=== PATIENT | female | born 2005 | race Caucasian/White ===

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

== ENCOUNTER 2024-08-26 15:26 | Observation (INO) | payer SELFPAY ==
[2024-08-26 15:15] VITALS: BP 125/67; PULSE 93
[2024-08-26 15:30] VITALS: BP 122/69; PULSE 95; TEMP 36.2; BMI 33.7
[2024-08-26 15:45] VITALS: BP 116/67; PULSE 89
--- NOTE | 2024-08-28 17:38 | PM.OBTRLD ---
OB - Triage/Final Diagnosis Visit Information Date of evaluation: 08/26/24 Reason for evaluation: other (abd pain) Comments/Additional reasons for admission: I have assessed the risk for this patient, Lianne Valenzuela, and determined that she would benefit from observation care.
== END 2024-08-26 16:12 | disposition home or self-care (01) ==
PROVIDERS: Admitting Provider Obstetrics & Gynecology; PCP Family Medicine Adolescent Medicine; Visit Provider Obstetrics & Gynecology
DX: O26.893 Other specified pregnancy related conditions, third trimester (principal); R10.9 Unspecified abdominal pain; Z3A.30 30 weeks gestation of pregnancy
CPT/HCPCS: G0378; G0379

== ENCOUNTER 2024-10-27 04:45 | Inpatient (IN) | payer OTHER, SELFPAY ==
[2024-10-27] VITALS (188 sets, daily range): BP systolic 63–147; BP diastolic 51–105; PULSE 32–136; RESP 16; TEMP 36–37.1; O2SAT 74–100; BMI 33.3
--- NOTE | 2024-10-27 05:13 | LDADM ---
This patient, Lianne Valenzuela, was admitted to Labor/Delivery/Recovery 104 on 10/27/24 at 04:45. Plans for labor, pain management and were discussed with patient. Patient/family oriented to hospital policies and general routines including ID bracelet, bed and alarms, visiting hours, pain management, procedures, bathroom and other care routines, personal items, smoking policy, room service/diet and guest tray routines, security routines, and visiting hours. Patient/Family are encouraged to report perceived risks to care and to ask questions if they do not understand what they are told or what they should do. See [facility]BI[facility] for further documentation.
[2024-10-27 05:38] LABS: Basophils Absolute Auto 0.1 K/mm3 (0.0-0.1); Basophils Percent Auto 0.5 % (0.2-1.2); Eosinophils Absolute Auto 0.2 K/mm3 (0-0.3); Eosinophils Percent Auto 1.7 % (0-4.4); Hematocrit 34.1 % (37.0-47.0); Hemoglobin 11.2 g/dL (12.0-15.0); Immature Granulocyte Absolute 0.14 K/mm3 (0.00-0.031); Immature Granulocyte Percent A 1.1 % (0-0.5); Lymphocytes Percent Auto 20.4 % (18.3-44.2); Mean Corpuscular HGB Conc 32.8 g/dl (32-36); Mean Corpuscular Hemoglobin 28.5 pg (26-34); Mean Corpuscular Volume 86.8 fl (80-100); Mean Platelet Volume 11.1 fl (7.4-10.4); Monocytes Absolute Auto 0.9 K/mm3 (0.1-0.6); Monocytes Percent Auto 7.2 % (2.6-8.5); Neutrophils Absolute Auto 8.8 K/mm3 (1.3-6.7); Neutrophils Percent Auto 69.1 % (45.5-73.1); Platelet Count Result 287 k/mm3 (150-375); Red Blood Count 3.93 M/mm3 (4.2-5.4); Red Cell Distribution Width 12.9 % (11.5-14.5); White Blood Count 12.8 K/mm3 (4.5-10.0)
[2024-10-27] MEDS: LACTATED RINGERS 1,000 ML 125 ML IV CONT ×2 (05:53→09:27)
[2024-10-27] MEDS: OXYTOCIN 30 UNITS/NS 500 ML 30 UNITS/500 ML BAG IV CONT (06:00)
[2024-10-27] MEDS: AMPICILLIN 2 GM/NS 100 ML 2 GM/100 ML BAG IVPB (06:01)
[2024-10-27 06:28] LABS: Hepatitis B Surface Antigen Negative (Negative); Rubella IgG Antibody 15.6 IU/ML
[2024-10-27 06:29] LABS: HIV 1/2 Ab P24 Ag Result Negative (Negative)
[2024-10-27 06:39] LABS: Rapid Plasma Reagin Non-Reactive (NonReactive)
[2024-10-27] MEDS: CALCIUM CARBONATE (TUMS) 500 MG (200 MG ELEMENTAL) PO (07:40)
--- NOTE | 2024-10-27 09:35 | P.PNAN_ITS ---
Anes - Initial Pre Proc Eval Procedure: Labor Epidural Date/Time: 10/27/24 09:35 Surgeon: Jaycob Mcconnell MD Pre Op Diagnosis: Labor pain Pre Op Diagnosis: IOL Patient Data Age: 19 Gender: F Height: 1.83 m Weight: 111.4 kg Last Vital Signs Temp 36.3 C L 10/27/24 09:29 Pulse 73 10/27/24 09:30 BP 125/78 10/27/24 09:30 Pulse Ox 99 10/27/24 09:32 O2 Del Method Room Air 10/27/24 05:38 Allergies Allergy/AdvReac Type Severity Reaction Status Date / Time latex Allergy Unknown Rash Verified 10/27/24 07:19 banana Allergy Vomiting Verified 10/27/24 07:19 shrimp Allergy Unknown Verified 10/27/24 07:20 Home Medications ?Medication ?Instructions ?Recorded ?Confirmed ?Type vits no.130-ferrous fum 1 tablet PO DAILY 30 days #30 tabs 07/06/22 10/27/24 Rx 27 mg iron-folic acid 800 mcg tablet ( Vitamin) Laboratory Tests 10/27/24 05:15 WBC 12.8 H K/mm3 (4.5-10.0) RBC 3.93 L M/mm3 (4.2-5.4) Hgb 11.2 L g/dL (12.0-15.0) Hct 34.1 L % (37.0-47.0) MCV 86.8 fl (80-100) MCH 28.5 pg (26-34) MCHC 32.8 g/dl (32-36) RDW 12.9 % (11.5-14.5) Plt Count 287 k/mm3 (150-375) MPV 11.1 H fl (7.4-10.4) Immature Gran % (Auto) 1.1 H % (0-0.5) Neut % (Auto) 69.1 % (45.5-73.1) Lymph % (Auto) 20.4 % (18.3-44.2) [place] % (Auto) 7.2 % (2.6-8.5) Eos % (Auto) 1.7 % (0-4.4) Baso % (Auto) 0.5 % (0.2-1.2) Lymph # (Auto) 2.60 K/mm3 (0.9-3.2) [place] # (Auto) 0.9 H K/mm3 (0.1-0.6) Eos # (Auto) 0.2 K/mm3 (0-0.3) Baso # (Auto) 0.1 K/mm3 (0.0-0.1) Abs Immat Gran (auto) 0.14 H K/mm3 (0.00-0.031) Absolute Neuts (auto) 8.8 H K/mm3 (1.3-6.7) Absolute Nucleated RBC 0.000 K/mm3 (0.0-0.012) Nucleated RBC % 0.0 % (0.0-0.2) RPR Non-reactive (NonReactive) Hep Bs Antigen Negative (Negative) HIV 1&2 Ab/P24 Ag 4thGn Negative (Negative) Rubella IgG Antibody 15.6 IU/ML (10 - ) Blood Type A Positive Antibody Screen Negative : gestational age (ISABELA 11/02/24) Patient hx anesthesia problems: none Family hx anesthesia problems: none Results Review: All pre-operative results and documents have been reviewed as part of the pre- operative evaluation. [facility] Family History Family History Grandparent Hypertension Social History Social History Smoking status: Current every day smoker Tobacco type: cigarettes and e-cigarettes/vaping Second hand tobacco smoke exposure: No Substance use: current Last use: 10/20/2024 Do You Feel Safe in your Home?: Yes Lack of Transportation: No Lack of Food: Never True Current Housing: I Have Housing Concerned About Future Housing: No Difficulty Paying Gas/Electric Bills: No Difficulty Paying for Meds: No Currently Unemployed: No Education: Associate Degree Difficulty w/ Childcare or Family Care: No Spiritual care concerns: No Anes - Eval Final PreProcedure Day of Procedure 10/27/24 09:35 Patient weight: obese Lungs: normal air movement Airway: Mallampati scale class II Neurological: alert and oriented Last oral intake: >/= 8 hours ASA classification: II Emergent: no Anesthetic plan: proceed Anesthesia type and monitoring: regional epidural Results Review: All pre-operative results and documents have been reviewed as part of the pre- operative evaluation. Informed Consent: The patient's anesthetic plan and its attendant risks and benefits were discussed with the patient/family/POA. Questions were solicited and answers provided to the satisfaction of the patient/family/POA.
[2024-10-27] MEDS: AMPICILLIN 1 GM/NS 50 ML 1 GM/50 ML BAG IVPB (10:27)
--- NOTE | 2024-10-27 10:35 | PM.IMHP ---
H&P: HPI History of Present Illness Date/Time: 10/27/24 10:35 Chief Complaint: Elective induction Narrative: Patient is a 19 year old at 39 weeks who presents for elective induction of labor. Her has been overall uncomplicated. She denies strong contractions, leakage of fluid or vaginal bleeding. Good movement. Review of Systems Review of Systems: All systems reviewed & are unremarkable except as noted in HPI and below PMFSH Family History Family History Grandparent Hypertension Social History Social History Smoking status: Current every day smoker Tobacco type: cigarettes and e-cigarettes/vaping Second hand tobacco smoke exposure: No Substance use: current Last use: 10/20/2024 Do You Feel Safe in your Home?: Yes Lack of Transportation: No Lack of Food: Never True Current Housing: I Have Housing Concerned About Future Housing: No Difficulty Paying Gas/Electric Bills: No Difficulty Paying for Meds: No Currently Unemployed: No Education: Associate Degree Difficulty w/ Childcare or Family Care: No Spiritual care concerns: No Meds Home Medications and Allergies Home Medications ?Medication ?Instructions ?Recorded ?Confirmed ?Type vits no.130-ferrous fum 1 tablet PO DAILY 30 days #30 tabs 07/06/22 10/27/24 Rx 27 mg iron-folic acid 800 mcg tablet ( Vitamin) Allergies Allergy/AdvReac Type Severity Reaction Status Date / Time latex Allergy Unknown Rash Verified 10/27/24 07:19 banana Allergy Vomiting Verified 10/27/24 07:19 shrimp Allergy Unknown Verified 10/27/24 07:20 Vital Signs Vital Signs - 24 hr 10/27/24 05:12 10/27/24 05:17 10/27/24 05:18 Temperature Pulse Rate Blood Pressure Pulse Oximetry 99 99 97 Oxygen Delivery 10/27/24 05:23 10/27/24 05:28 10/27/24 05:32 Temperature Pulse Rate 92 Blood Pressure 121/76 Pulse Oximetry 98 98 98 Oxygen Delivery 10/27/24 05:37 10/27/24 05:38 10/27/24 05:42 Temperature Pulse Rate Blood Pressure Pulse Oximetry 98 99 Oxygen Delivery Room Air 10/27/24 05:47 10/27/24 05:48 10/27/24 05:48 Temperature Pulse Rate Blood Pressure Pulse Oximetry 98 94 85 L Oxygen Delivery 10/27/24 05:48 10/27/24 05:49 10/27/24 05:49 Temperature Pulse Rate Blood Pressure Pulse Oximetry 78 L 78 L 81 L Oxygen Delivery 10/27/24 05:50 10/27/24 05:51 10/27/24 05:56 Temperature Pulse Rate Blood Pressure Pulse Oximetry 74 L 98 98 Oxygen Delivery 10/27/24 06:00 10/27/24 06:01 10/27/24 06:06 Temperature Pulse Rate 93 Blood Pressure 114/75 Pulse Oximetry 97 98 Oxygen Delivery 10/27/24 06:11 10/27/24 06:16 10/27/24 06:21 Temperature Pulse Rate Blood Pressure Pulse Oximetry 98 99 99 Oxygen Delivery 10/27/24 06:33 10/27/24 06:38 10/27/24 06:42 Temperature Pulse Rate 75 Blood Pressure 126/69 Pulse Oximetry 99 98 Oxygen Delivery 10/27/24 06:43 10/27/24 06:48 10/27/24 06:49 Temperature 96.8 F L Pulse Rate Blood Pressure Pulse Oximetry 98 98 98 Oxygen Delivery 10/27/24 06:54 10/27/24 06:59 10/27/24 07:00 Temperature Pulse Rate 75 Blood Pressure 125/64 Pulse Oximetry 98 98 Oxygen Delivery 10/27/24 07:04 10/27/24 07:09 10/27/24 07:14 Temperature Pulse Rate Blood Pressure Pulse Oximetry 98 98 98 Oxygen Delivery 10/27/24 07:19 10/27/24 07:24 10/27/24 07:25 Temperature Pulse Rate Blood Pressure Pulse Oximetry 98 98 98 Oxygen Delivery 10/27/24 07:30 10/27/24 07:35 10/27/24 07:40 Temperature Pulse Rate 83 Blood Pressure 120/69 Pulse Oximetry 97 96 99 Oxygen Delivery 10/27/24 07:45 10/27/24 07:50 10/27/24 07:55 Temperature Pulse Rate Blood Pressure Pulse Oximetry 99 99 99 Oxygen Delivery 10/27/24 08:00 10/27/24 08:01 10/27/24 08:05 Temperature Pulse Rate 80 Blood Pressure 118/71 Pulse Oximetry 98 98 Oxygen Delivery 10/27/24 08:10 10/27/24 08:15 10/27/24 08:20 Temperature Pulse Rate Blood Pressure Pulse Oximetry 98 99 97 Oxygen Delivery 10/27/24 08:25 10/27/24 08:30 10/27/24 08:31 Temperature Pulse Rate 78 Blood Pressure 113/60 Pulse Oximetry 99 98 Oxygen Delivery 10/27/24 08:35 10/27/24 08:40 10/27/24 08:45 Temperature Pulse Rate Blood Pressure Pulse Oximetry 99 99 98 Oxygen Delivery 10/27/24 08:50 10/27/24 08:55 10/27/24 09:00 Temperature Pulse Rate Blood Pressure Pulse Oximetry 98 99 98 Oxygen Delivery 10/27/24 09:00 10/27/24 09:01 10/27/24 09:06 Temperature Pulse Rate 82 Blood Pressure 129/80 Pulse Oximetry 100 99 99 Oxygen Delivery 10/27/24 09:11 10/27/24 09:16 10/27/24 09:16 Temperature Pulse Rate Blood Pressure Pulse Oximetry 96 99 100 Oxygen Delivery 10/27/24 09:18 10/27/24 09:23 10/27/24 09:28 Temperature Pulse Rate Blood Pressure Pulse Oximetry 97 99 99 Oxygen Delivery 10/27/24 09:29 10/27/24 09:30 10/27/24 09:32 Temperature 97.3 F L Pulse Rate 73 Blood Pressure 125/78 Pulse Oximetry 99 Oxygen Delivery 10/27/24 09:37 10/27/24 09:41 10/27/24 09:42 Temperature Pulse Rate 66 Blood Pressure 131/85 Pulse Oximetry 100 99 Oxygen Delivery 10/27/24 09:44 10/27/24 09:46 10/27/24 09:47 Temperature Pulse Rate 74 72 Blood Pressure 124/72 134/95 H Pulse Oximetry 99 Oxygen Delivery 10/27/24 09:48 10/27/24 09:50 10/27/24 09:52 Temperature Pulse Rate 80 81 Blood Pressure 143/75 H 143/91 H Pulse Oximetry 100 Oxygen Delivery 10/27/24 09:53 10/27/24 09:56 10/27/24 09:57 Temperature Pulse Rate 93 85 Blood Pressure 147/105 H 143/81 H Pulse Oximetry 100 Oxygen Delivery 10/27/24 09:58 10/27/24 10:00 10/27/24 10:02 Temperature Pulse Rate 85 80 Blood Pressure 127/92 H 129/79 Pulse Oximetry 100 Oxygen Delivery 10/27/24 10:03 10/27/24 10:06 10/27/24 10:07 Temperature Pulse Rate 84 88 Blood Pressure 130/72 131/77 Pulse Oximetry 98 Oxygen Delivery 10/27/24 10:08 10/27/24 10:11 10/27/24 10:12 Temperature Pulse Rate 73 83 Blood Pressure 137/76 127/69 Pulse Oximetry 99 Oxygen Delivery 10/27/24 10:13 10/27/24 10:15 10/27/24 10:17 Temperature Pulse Rate 83 83 Blood Pressure 128/79 125/71 Pulse Oximetry 97 Oxygen Delivery 10/27/24 10:18 10/27/24 10:21 10/27/24 10:22 Temperature Pulse Rate 82 82 Blood Pressure 120/67 118/67 Pulse Oximetry 98 Oxygen Delivery 10/27/24 10:23 10/27/24 10:26 10/27/24 10:27 Temperature Pulse Rate 89 88 Blood Pressure 122/74 95/70 L Pulse Oximetry 97 Oxygen Delivery 10/27/24 10:28 10/27/24 10:31 10/27/24 10:32 Temperature Pulse Rate 80 78 Blood Pressure 117/72 124/74 Pulse Oximetry 98 Oxygen Delivery 10/27/24 10:33 Temperature Pulse Rate 75 Blood Pressure 123/60 Pulse Oximetry Oxygen Delivery Exam Const: General: comfortable and no acute distress HENMT: Mouth: Yes moist mucous membranes Resp: Effort & Inspection: normal respiratory effort Cardio: Rate: regular rate : Other: SVE 4/50/-2, AROM Of clear fluid, IUPC placed without issue Skin: General skin exam: normal color Extrem: General: normal to inspection Psych: Mental Status: mental status grossly normal H&P: Results Labs Labs: Short CBC 10/27/24 Range/Units 05:15 WBC 12.8 H (4.5-10.0) K/mm3 Hgb 11.2 L (12.0-15.0) g/dL Hct 34.1 L (37.0-47.0) % Plt Count 287 (150-375) k/mm3 Assessment and Plan Assessment and plan (1) Encounter for elective induction of labor: Code(s): Z34.90 - Encounter for supervision of normal , unspecified, unspecified trimester Status: Acute Assessment and Plan: - uncomplicated - SVE /-2 - pitocin per protocol; AROM of clear fluid - FHR category I
[2024-10-27] MEDS: FAMOTIDINE 20 MG/2 ML VIAL IV PUSH (12:17)
--- NOTE | 2024-10-27 16:48 | PM.OBPRVD ---
OB - Vaginal Delivery Note Procedure Delivery date: 10/27/24 Events: Elective Induction of Labor Induction method: Per Pitocin Protocol Delivery augmentation: Rupture of Membranes Delivery monitor: External FHT and Internal Uterine Route of delivery: Episiotomy description: None Laceration Description: Periurethral (hemostatic) Specimen: No Quantitative Blood Loss (ml): 50 Anesthesia type: Epidural Disposition: Floor Complications: No immediate complications Narrative: See H&P and notes for details on patient's admission and labor. She progressed to complete cervical dilation and at the appropriate time began pushing. With adequate expulsive efforts by the mother, the baby's head was delivered without difficulty. Nuchal cord was not present. The baby's right shoulder was anterior and delivered under the pubic symphysis without difficulty. The posterior shoulder and the rest of the baby delivered without difficulty. The umbilical cord was doubly clamped and cut after 60 seconds of delayed cord clamping. Care of the was then assumed by the nursing staff. [place] Baby Date of : 10/27/24 Gestational Age by Date: 39 gender: Male presentation: vertex position: Left Occiput Anterior Placenta delivery description: Expressed Cord Vessel Description: 3 Vessels and Delayed Cord Clamping
[2024-10-27] MEDS: IBUPROFEN 600 MG TABLET PO (18:30)
[2024-10-27] MEDS: BENZOCAINE 20% AER SPR (*SP) 56 GM CAN 1 SPRAY TOPICAL (18:30)
[2024-10-27] MEDS: WITCH HAZEL 40 PADS 1 PAD TOPICAL (18:30)
[2024-10-27] MEDS: ACETAMINOPHEN 325 MG TABLET 650 MG PO (18:31)
[2024-10-28 05:29] LABS: Hematocrit 32.8 % (37.0-47.0); Hemoglobin 10.5 g/dL (12.0-15.0)
[2024-10-28] MEDS: DOCUSATE SODIUM 100 MG CAPSULE PO (06:58)
[2024-10-28] MEDS: IBUPROFEN 600 MG TABLET PO (06:58)
[2024-10-28] MEDS: MULTIVIT/MIN/PREN/FOL AC/IRON TABLET 1 TAB PO (06:58)
[2024-10-28 07:00] VITALS: BP 106/50; PULSE 64; RESP 16; TEMP 36.9; O2SAT 97
--- NOTE | 2024-10-28 09:27 | P.PNOB_ITS ---
OB - PN: Subj Subjective Date/time seen: 10/28/24 09:27 Interval history: PPD#1 s/p Doing well, pain controlled Voiding without issue Passing flatus Tolerating general diet OB - PN: Obj Data Labs 10/28/24 04:06 Labs: Laboratory Results - last 24 hr 10/28/24 04:06 Hgb 10.5 L Hct 32.8 L OB - PN A/P Assessment and Plan (1) (spontaneous vaginal delivery): Code(s): O80 - Encounter for full-term uncomplicated delivery Status: Acute Plan day: 1 Plan: routine care, discharge home and follow up 6 weeks Time Spent With Patient Time: Total time spent is greater than 50% in coordination of care (as documented) at patient's floor/unit and/or counseling patient: Review of Systems 2 Review of Systems: All systems reviewed & are unremarkable except as noted in HPI and below Exam 2 Const: General: comfortable and no acute distress O rientation/consciousness: patient oriented x3 Resp: Effort & Inspection: normal respiratory effort
--- NOTE | 2024-10-28 09:29 | P.DS_ITS ---
DS: Admitting Diagnosis Discharge Date 10/28/24 Admitting Diagnosis elective induction of labor DS: Discharge Diagnosis Discharge Diagnosis (1) (spontaneous vaginal delivery): Code(s): O80 - Encounter for full-term uncomplicated delivery Status: Acute OB - DS: Summary OB Procedures : None OB Procedures Intrapartum: Spontaneous Vag Delivery OB Procedures: : None Peripartum Data Laceration Description: Periurethral (hemostatic) Episiotomy description: None Time Spent with Patient Time attestation: Total time spent providing and/or coordinating discharge services: DS: Data Data Completed and Pending Labs on day of discharge: Labs from last 24 hours 10/28/24 04:06 Hgb 10.5 L Hct 32.8 L Discharge Plan Discharge Attending physician on discharge: Jaycob Mcconnell Discharging Clinician: Jaycob Mcconnell Patient Disposition: Home, Self-Care Activity: may shower, as tolerated and pelvic rest Diet: as tolerated Patient Instructions: Antibiotic Form Patient Language: Turkish Stand Alone Forms: General Discharge Information Follow-up/Referrals: Jaycob Mcconnell MD [Physician] - 4 Weeks Discharge Medications: New docusate sodium 100 mg Capsule 100 mg PO BID PRN (Reason: Constipation) Qty: 60 0RF ibuprofen 600 mg Tablet 600 mg PO Q6H PRN (Reason: Cramping) Qty: 30 0RF Continued Vitamin 27 mg iron- 800 mcg tablet 1 tablet PO DAILY 30 Days Qty: 30 11RF Date of admission: 10/27/24 04:45 Primary Care Provider: Gucci Muhammad Admitting Provider: Jaycob Mcconnell Attending physician on admission: Jaycob Mcconnell Condition: Stable
--- NOTE | 2024-10-28 10:32 | WPDANLDPN2 ---
Anes-Prog Note L&D Date/Time: 10/28/24 10:32 Comfortable throughout: labor and delivery Neuraxial method: epidural Epidural/Spinal procedure site: clean & non-tender Neuro status: Neuro function grossly intact. Cardiovascular status: normal Respiratory status: normal Airway patency: baseline Mental status: baseline Post-Op hydration status: normal Vital Signs: Last Vital Signs Temp 97.7 F 10/27/24 20:26 Pulse 91 10/27/24 20:26 Resp 16 10/27/24 20:26 BP 121/82 10/27/24 20:26 Pulse Ox 98 10/27/24 20:26 O2 Del Method Room Air 10/27/24 05:38 Pain score (VAS): 0 I/O: Intake & Output 10/27/24 10/28/24 10/28/24 23:59 07:59 15:59 Intake Total 818.8 Balance 818.8 Post-procedural complaints: none Patient feedback: Patient satisfied with anesthetic care.
[2024-10-28 11:10] VITALS: BP 109/64; PULSE 85; RESP 16; TEMP 37.1; O2SAT 97
[2024-10-28] MEDS: ACETAMINOPHEN 325 MG TABLET 650 MG PO (11:35)
--- NOTE | 2024-10-28 14:47 | PC.NURSE ---
0631.Met with patient to assess and discuss needs related to feeding. Mother states it is her intention to combo feed, and mom is supplementing with formular per her preference at times. Encouraged mother to breastfeed infant 8-12 times in 24 hours (approximately every 2-3 hours), watching for early feeding cues. If is sleepy, unwrap and place baby skin to skin. was circumcised today, we attempted to feed at the breast, sleepy and reluctant with no successful latches. Mom encourged to do s2s and watch for early feeding cues and reattempt latch, mom encouraged not to go longer than 3 hours in between feedings, and to pump if she decides to supplement instead of to protect her milk supply. We discussed proper milk storage guidelines, and handout given on proper breast milk storage. Discussed signs that infant is effectively , i.e. sufficient voids and stools, jaundice within normal limits, <10% weight loss from . Mother educated on milk production, supply and demand, and expectations for in the immediate period. Mom confirms she would like a referral to [facility]. Encouraged feeding on demand and feeding durations of 15 minutes or greater. Discussed breast/nipple care with good hand hygiene, signs of a correct latch, listening for swallows and documenting feedings on the feeding sheet. Mother instructed to call for assistance if infant will not feed every 3 hours, if there is discomfort with , or if mother has any other questions or concerns. resources provided including the Mom and Baby Guide and name/number on communication board. Mother verbalized understanding. Updated patient?s primary RN with education provided.? [id number]. [facility] referral faxed at this time.
--- NOTE | 2024-10-28 16:39 | PC.NURSE ---
1230. Breast pump provided due to infant poor feeder at the breast. Instructions given on cleaning, care, usage, that there should be no pain, pumping schedule for milk production, collection, and storage of human milk. Patient was assessed for correct placement, flange size, to pump for comfort and nipple stretching/stimulation for adequate milk production every 3 hours (8 times in 24 hours) 1-2 times at night. Parents are encouraged to record the pumping schedule on the feeding sheet.?Mother voiced understanding of the education shared along with mom/baby guide and the pump measurement, flange fit handout for additional resource information. Reported to the Primary RN.
[2024-10-28] MEDS: TETANUS,DIPHTHERIA,AC PERTUSSIS ADULT (0.5 ML) BOOSTRIX IM (16:53)
[2024-10-28] MEDS: INFLUENZA TRIVALENT VACCINE 45 MCG/0.5 ML SYRINGE IM (16:54)
[2024-10-31 11:16] VITALS: BP 111/66; PULSE 97; RESP 18; TEMP 36.6; O2SAT 100
--- OUTSIDE RECORDS SUMMARY | 2024-11-03 08:13 | XMS_ITS | Continuity of Care Document ---
Author Organization [facility] Address [address] [id number] Care Team Providers Care Cso Name Role Phone MD Gucci Muhammad Primary Care Provider MD Reilly Epps Admit Provider MD Reilly Epps Attending Provider Care Teams Patient Care Team Team Status: Active Member Role Status Dates Gucci Muhammad MD Family Provider Active Gucci Muhammad MD Primary Care Provider Activ e Patient Care Team Team Status: Inactive Member Role Status Dates Gucci Muhammad MD Primary Care Provider Activ e Reilly Epps MD Admit Provider, Attending Prov ider Active Chief Complaint and Reason for Visit Chief Complaint contractions Allergies, Adverse Reactions, Alerts Allergen Type Severity Reaction Last Updated Verified Status latex Allergy Unknown Rash June 08, 2022 3:40pm Yes Active Social History Smoking Status Status Start Date End Date Date of Observa tion Ex-smoker (finding) [facility] 2021 6:49am Additional Data Assigned Sex Female Family History Relationship Condition Age at Onset Recorded Date/T vicki grandparent Hypertension Unknown Problems Active Problems Medical Problem Onset Date Status Learning disorder Active Marijuana use during A ctive Rubella non-immune status, antepartum Active Normal delivery at term Active Anxiety Active Autism Active Depression Active Active Psoriasis Active Inactive/Resolved Problems Medical Problem Onset Date Status Upper respiratory infection Reso lved Bipolar disorder Resolved Medications Medication Status Dose Units Route Directions Qty Days Start Carson e End Date Instructions Vit No.130-Iron- Folic ( Vitamin) 27 mg iron- 800 mcg tablet Active 1 TABLET PO DAILY July 06, 2022 12:00am Immunizations Immunization Event Date Not Given Reason Dose Number Senior Consultant Lot Number Vaccine Information Statement (VIS) Detail Measles, Mumps, and Rubella Virus Vaccine July 06, 2022 [id number] Vital Signs Vital Reading Result Reference Range Collection Date/Time Height 72 [in_i] August 26 3:30pm Weight 113.00 kg August 26 3:30pm Body Temperature 97.2 [degF] 97.6-99.6 August 3:30pm Heart Rate 89 /min 60-100 August 26 3:45pm BP Systolic 116 mm[Hg] 100-140 August 26 3:45pm BP Diastolic 67 mm[Hg] 60-90 August 26 3:45pm BMI (Body Mass Index) 33.7 kg/m2 Novemb er 2023 3:30pm Advance Directives Advance Directive Response Recorded Date/ Time Current Advance Directive No 2023 3:30pm Insurance Providers Guarantor Lianne Valenzuela Address [address] [place] [id number] Contact Info. Home Phone: Payer Policy Id Coverage Id Subscriber's Name Subscriber Id Effective Date Expiration Date [facility] [id number] Lianne Valenzuela [id number] 2018 Self Pay Self N/A Encounters Encounter Location(s) Arrival/Admit Date Discharge/Depart Date Provider(s) Discharged [facility] August 26, 2024 2:51pm August 26, 2024 4:12pm Reilly Epps MD Plan of Treatment Future Tests Future scheduled test information is unavailable Pending Tests Pending diagnostic test information is unavailable Future Visits Future appointment information is unavailable Referrals to Other Providers Reason for Referral Referral Start Date Provider Provider Contact Information Provider Address Reilly Epps MD Work Phone: [address] [facility] [id number] Future Procedures Procedure Name Ordered Date Scheduled Date Discharge Order August 26, 2024 4:06pm [facility] to Observation August 26, 2024 3:26 pm August 26, 2024 3:26pm Future Medications Future medication information is unavailable Patient Instructions Patient instructions are unavailable Hospital Discharge Instructions Additional Instructions OB ANTEPARTUM DISCHARGE INSTRUCTIONS This information is given to help you properly care for yourself at home after your discharge from the hospital. Follow these instructions until your doctor tells you otherwise. DIET: Eat Three Well Balanced Meals per Day Drink at Least Eight 8-Ounce Glasses of Water Beverages Daily Additional Diet Instructions: ACTIVITY: As Tolerated Additional Activity Instructions: RETURN TO LABOR AND DELIVERY IF YOU HAVE: Any Change In Baby's Normal Movement Pattern Any Leakage of Fluid More than 6 Contractions in an Hour Vaginal Bleeding Warning Signs of Pre-term Labor as per Handout Additional Reasons to Return to Labor and Delivery: Contractions may feel like abdominal pain, tightening, cramping, pressure, back ache, or thigh ache. FOLLOW-UP CARE: Keep Next Scheduled Appointment To see in/on Valuables released to patient or family? N/A Medications from home returned to patient? N/A I Acknowledge Receipt of and Understand the Above Instructions IF YOU HAVE ANY QUESTIONS REGARDING THESE INSTRUCTIONS, PLEASE CALL [phone]. IF PROBLEMS ARISE, CALL YOUR PROVIDER. IF EMERGENCY CARE IS NEEDED, [facility] IS AVAILABLE 24 HOURS A DAY.
--- OUTSIDE RECORDS SUMMARY | 2024-11-03 08:14 | XMS_ITS | Continuity of Care Document ---
Author Organization [facility] Address [address] [place] [address] Phone Care Team Providers Care Supervisor [employer] Name Role Phone Branden Moore MD Unavailable Unavailable Allergies, Adverse Reactions, Alerts Substance Reaction Status Criticality No Known Allergies Active No Inform ation Medications Medication Instructions Dosage Effective Dates (start - stop) Status Comments divalproex 250 mg tablet,delayed release take 1 tablet by oral route 2 times every day 250 MG - Active hydroxyzine HCl 50 mg tablet take 1 tablet by oral route 4 times every day 50 MG - Active sertraline 50 mg tablet take 1 tablet by oral route every day 50 MG - Active triamcinolone acetonide 0.025 % lotion apply by topical route 2 times every day a thin layer to the affected area(s) 0.00 - Active divalproex 500 mg tablet,delayed release take 1 tablet by oral route 2 times every day 500 MG - Active chlorpromazine 50 mg tablet take 1 tablet by oral route 3 times every day 50 MG - Active chlorpromazine 25 mg tablet take 1 tablet by oral route 2 times every day 25 MG - Active Procedures Procedure Date Office/outpatient visit,[facility] 2018 Fracture Care To Be Charged Distal Fibular Fx (lateral Malleolus) W/ o Manip Walking Boot, Pneumatic And/or Vacuum Wi th Or With Advance Directives Directive Yes / No Effective Date File Name No Information Encounters Encounter Description Practice Location Reason(s) For Visit Diagnoses Date Provider Providers Copied on Encounter Office/outpat ient visit,[facility], [facility], [address], [place], [id number], tel:[phone] [facility] foot (chief complaint) Closed nondisplaced transverse fracture of shaft of left fibula, initial encounter 9 Oscar Otero. [address], [place], [id number] , . tel:[phone] Referring Provider: Jasbir Espinosa, [address] [place], [address] . tel:[phone] [facility], [address] [place] [address], [id number], tel:[phone] [facility] No Information 9 Oscar Branden. [address], [place], [id number] , . tel:[phone] Referring Provider: Branden Stein, [address] [place] [address], [id number] . tel:[phone] Family History Family Member Type Diagnosis Age At Onset No Information Payers Payer name Insurance type Covered green party ID Authora madelin(s) [employer] Through 21 [id number] Social History Type Description Quantity Date Captured Comments Alcohol Use Details Unknown Caffeine Use Details Unknown Tobacco Use Status Current non-smoker 19 Smoking Status Never smoker Non-Smoking Tobacco Use Details : No Details Available : No Details Available Sex Female Vital Signs Date / Time: Height Weight BMI Pulse Rate Blood Pressure Temperature Respiratory Rate Body Surface Area Head Circumference Head Circ. Percentile Wt./Oli. Percentile BMI percentile Pulse Ox Inhaled Ox 1:33 PM 68.00 in 81.193 kg (179.00 lbs) 27.2 2 kg/m eter (2) 103 /min 111/60 mm[Hg] 93 Chief Complaint And Reason For Visit From encounter dated '08/29/2019 13:10'. foot (chief complaint) Reason For Referral Reason For Referral No Information History Of Present Illness Encounter Date Complaint History Of Prese nt Illness foot Functional Status Date Functional Assessmen t No Information Instructions Date Instruction Additional Infor mation No Information Assessments Type Assessment Date assessment Closed nondisplaced transverse fracture of shaft of left fibula, initial encounter Patient Care Teams Name Effective Dates (start - stop) Status Members No Information
--- OUTSIDE RECORDS SUMMARY | 2024-11-03 08:14 | XMS_ITS | Continuity of Care Document ---
Author Organization [facility] Address [address] [place] [address] Assessment Encounter Date Assessment Date Assessment LastModified by Organization Details LastModified Time 08/25/2024 08/25/2024 Patient is ___weeks . Discussed plan. [email or web address] Not available 08/25/2024 15:37:49 Plan of Treatment Reminders Order Date Submit Date Provider Last Modified By Organization Details Last Modified Time Details Appointments POST 2024 03:15P Judson TRIPP MD Not available Not available Not available Lab None recorded . Referral None recorded . Procedures None recorded . Surgeries None recorded . Imaging None recorded . Medication Orders None recorded . Patient TargetsNo targets recorded. Patient InstructionsNo instructions recorded. Reason for Referral None Reported. Results Created Date Observation Date Name Description Value Unit Range Abnormal Flag Note LastModifiedBy Organization Detail LastModifiedTime 06/15/20 24 06/15/2024 US, obste tric, 2nd or 3rd trime ster No observ ation record ed. [email or web address] [facility] [address], [place], [address], 06/15/2024 13:37:49 06/15/20 24 06/15/2024 US, obste tric, 2nd or 3rd trime ster No observ ation record ed. SHAUNA William [address], [place], [address], 06/16/2024 11:03:47 07/13/20 24 07/14/2024 US, obste tric, follo w-up No observ ation record ed. [email or web address] [facility] [address], [place], [address], 07/14/2024 10:03:13 07/13/20 24 07/13/2024 US, obste tric, follo w-up No observ ation record ed. SHAUNA Nataliia [address], [place], [address], 09/27/2024 13:05:28 09/13/20 24 09/13/2024 US, obste tric, follo w-up No observ ation record ed. [email or web address] [facility] [address], [place], [address], 09/13/2024 18:07:12 09/13/20 24 09/13/2024 US, obste tric, follo w-up No observ ation record ed. SHAUNA Nataliia [address], [place], [address], 09/27/2024 13:05:27 10/04/20 24 10/04/2024 US, obste tric, follo w-up No observ ation record ed. [email or web address] [facility] [address], [place], [address], 10/04/2024 16:24:01 10/04/20 24 10/04/2024 US, obste tric, follo w-up No observ ation record ed. [email or web address] Nataliia [address], [place], [address], 10/04/2024 22:15:54 Result Notes None recorded. Problems Name Problem SNOMED Code Status Onset Date Resolution Date Notes Provider Name and Address Organization Details Recorded Time 30320810 Active 2023 GIANFRANCO TRIPP MD [address], [place], [address], [facility] 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 4 10:55:02 Problem Notes None recorded. Medical Equipment None Reported. Allergies Allergen ID Allergen Name Allergen Category Reaction Reaction Severity Criticality Documentation Date Start Date Code Code System Note Provider Name and Address Organization Details Recorded Time 53307 latex environme nt,medica tion Not available Not available Not available 03/28/2024 95368 91 RxNorm [facility] 16:38:19 16672 banana extract food,medi cation Not available Not available Not available 03/28/2024 14528 9 [facility]Norm [facility] 16:38:30 88614 shrimp allergeni c extract food Not available Not available Not available 03/28/2024 99817 2 RxNorm [facility] 16:38:36 Medications Name Sig Start Date Stop Date Status Note LastModified by Organization Details LastModified Time quetiapin e 25 mg tablet take 1 tablet by oral route 2 times every day 04/24 completed Prescrib ed Elsewher e: Yes Loca tion: [facility] odify By: [email or web address] Encounte r DateTime : 07/14/20 17 04:30:00 PM Not Available Not Available Not Available Celexa 10 mg tablet take 1 tablet by oral route every day 04/24 completed Prescrib ed Elsewher e: Yes [facility] By: [email or web address] Encounte r DateTime : 03/27/20 16 08:45:00 AM Not Available Not Available Not Available Adderall 5 mg tablet take 1 tablet by oral route 2 times every day before breakfas t and at noon 04/24 completed Prescrib ed Elsewher e: Yes Loca tion: [facility] odify By: [email or web address] Encounte r DateTime : 03/27/20 16 08:45:00 AM Not Available Not Available Not Available ondansetr on 8 mg disintegr ating tablet Place 1 tablet 4 times a day by translin gual route as needed. 04/24 completed Not Available Not Available Not Available cephalexi n 500 mg capsule Take 1 capsule twice a day by oral route for 5 days. 08/07 completed Not Available Not Available Not Available metoclopr amide 10 mg tablet Take 1 tablet 4 times a day by oral route. 2023 active Not Available Not Available Not Avai lable Fish Oil active Not Available Not Avai lable Not Available triamcino lone acetonide 0.147 mg/gram topical aerosol apply by topical route 3 times every day to the affected area(s) 04/24 completed Prescrib ed Elsewher e: Yes Loca tion: [place] [facility] odify By: [email or web address] Reyeste r DateTime : 07/14/20 17 04:30:00 PM Not Available Not Available Not Available Lomedia 24 Fe 1 mg-20 mcg (24)/75 mg (4) tablet take 1 tablet by oral route every day 04/24 completed Prescrib ed Elsewher e: No [facility] odify By: jonathan allen DateTime : 07/14/20 17 04:30:00 PM Not Available Not Available Not Available Aptensio XR 10 mg capsule,e xtended release sprinkle take 1 capsule by oral route every day in the morning 04/24 completed Prescrib ed Elsewher e: Yes Loca tion: [place] [facility] odify By: [email or web address] Encounte r DateTime : 07/14/20 17 04:30:00 PM Not Available Not Available Not Available Se-Zee- 19 29 mg iron-1 mg tablet active Not Available Not Available Not Available One-A-Day - 1 27 mg iron-800 mcg-235 mg capsule Take 1 capsule every day by oral route. 08/07 completed Not Available Not Available Not Available Vitals Date Recorded Body height Body mass index (BMI) Body mass index (BMI) Percentile per age and sex Body weight Systolic blood pressure Diastolic blood pressure Provider Name and Address Organization Details Last Updated DateTime 4 182.88 cm 32.7 kg/m2 96 % 629255. 80237 g 122 mm[Hg] 68 mm[Hg] Inez Romulo [facility] 4 15:38:28 Social History Question Answer Notes LastModified by Organizat ion Details LastModified Time In The 14 Days Before Symptom Onset, Have You Had Close Contact With A Person Who Is Under Investigation For COVID-19 While That Person Was Ill? No Information not available 03/28/2024 Have You Been To An Area Known To Be High Risk For COVID-19? No Information not available 03/28/2024 Sex: Unknown Functional Status None recorded. Mental Status None recorded. Family History Relationship Description Onset Age of this Age Resolved Age Notes LastModified by Organization Details LastModified Time Mother Malignant tumor of cervix [email or web address] Not available 2023 16:40:32 Mother Essential hypertension [email or web address] Not available 01/2024 16:40:44 Mother Cyst of ovary dswayne Not available 2023 16:40:54 Medical History Condition Response Allergies (Food, seasonal, environmental ) N Other N Breast Cancer N Drug/Latex Allergies/Reactions N Blood Transfusion N Dermatologic Disorders N Lung Disease N Defects or Inherited Disease N Breast Problem N Gestational Diabetes N Hematologic disorders N Anesthesia Complications N History of STI N Deep Vein Thrombosis N Polycystic ovary syndrome N Anxiety Disorder N Autoimmune disease N Arthritis N Infertility N Polyps N Acid Reflux (GERD) N History of abnormal pap N Cancer N Stroke N Varicosities N Neurologic/Epilepsy N Endometriosis N High Cholesterol N Headaches N Fibromyalgia N Kidney Disease N Heart Problems N Kidney or Bladder Problems N Thyroid Problems N GI Problems N Eating Disorder N Anemia N Art (IVF or FET) N Psychiatric Illness N Ovarian Cancer N Diabetes N Pulmonary (TB, Asthma) N Hepatitis/Liver Disease N No Past Medical History N Eczema N Urinary Tract Infection N Abuse/Domestic Violence N Asthma N Trauma/Violence N Depression/ depression N Heart Disease N Pre-Eclampsia N Hypertension N Osteoporosis N Thrombophilias N Gynecological History Statement/Question Response Date of LMP 01/27/2024 Sexually Active? Y STIs/STDs N Date of Last Pap Smear Sexual Problems? N Current Control Method Desired Control Method None LMP Definite Obstetrics History GPAL:G 2 P 1 0 0 1 Type Value Full Term 1 Living 1 Total 2 Past Encounters Encounter ID Performer Location Encounter Start Date Encounter Closed Date Diagnosis/Indication Diagnosis SNOMED-CT Code Diagnosis ICD10 Code Diagnosis Note [id number] Reilly Epps MD [facility] [address] [address] 08/07/2024 14:54:20 08/07/2024 15:37:00 Routine care 702542350 Z34.92 [id number] Reilly Epps MD [facility] [address] [address] 08/25/2024 15:33:19 08/25/2024 16:26:02 Routine care 135511336 Z34.92 Health Concerns Section Related Observation LastModified by Organization Detai ls LastModified Time None Recorded Concern Status LastModified by Organization Details LastModified Time None Recorded Payers Encounter Date Sequence Insurance Name Policy Number Policy Vasquez Covered Member ID Vasquez Member ID Guarantor Name 08/25/2024 1 *SELF PAY* Cayla Valenzuela OBGyn Episode Ob Episode Information Episode Created Date Number of Fetuses Patient Bloodtype Patient rh Status Prepregnancy Weight lbs Domestic Partner Domestic Partner Phone Father Name Mill Laborer Status 04/28/20 24 1 A Positive OPEN Fetus Data First Name Last Name Admitted to NICU Weight (g) Sex Living Outcome Pediatric Complications Fetus ID Race Codes Race Delivery Type [id number] Problems Problem Notes Problem Name Start Date End Date Resolution Snomed Code Not e Placenta circumvallata 06/15/2024 042818 0 Growth at 32wks Triston Calculation Initial Triston Date Initial Exam Date Initial Exam Provider Initial Ultrasound Date Last Menstrual Period Date Ultra Sound Weeks Gestation 11/02/2024 04/28/2024 01/27/2024 0 Eighteen To Twenty Week Triston Update Ultra Sound Date Fundal Height At Umbil Quickening Date Ultra Sound Latest Weeks Gestation Final Triston Confirmed By Final Triston Confirmed Date Final Triston Date Ultra Sound Latest Days Gestation 0 04/28/2024 11/02/19 25 0 Pre- Flowsheet Flowsheet Date 2024 Rivera Score Blood Edema Fundus Height Fundus Units Glucose Ketones Leukocytes Nitrite Labor Signs Protein Cervic Dilation Cervic Effacement Cervic Station Type Weight in lbs Pre/Post Dialysis Refused Weight 233.88002817368 BP Diastolic BP Location Tested BP Systolic BP Type 63 116 Fetus Heart Rate Present Fetus Movement A No Comments Patient presents to [facility] care. Her has been thus far uncomplicated. She has a history of a macrosomic and . NT/NB wnl today, desires NIPT however will wait due to insurance issues. Will also hold new OB labs until insurance fixed. RTC 4 weeks. Discussed normal care. Flowsheet Date 05/26/2024 Rivera Score Blood Edema Fundus Height Fundus Units Glucose Ketones Leukocytes Nitrite Labor Signs Protein Cervic Dilation Cervic Effacement Cervic Station Type Weight in lbs Pre/Post Dialysis Refused Weight 231.402772840676 BP Diastolic BP Location Tested BP Systolic BP Type 66 102 Fetus Heart Rate Present Fetus Movement Comments Having increased nausea, han l trial reglan. No cramping or bleeding. Pulled muscle at work, will give tomorrow off. Discussed heat/ice, tylenol for symptomatic relief. Would still like NIPT, will draw with new OB labs today. Discussed anatomy US for next visit. RTC 4 weeks. Flowsheet Date 06/15/2024 Rivera Score Blood Edema Fundus Height Fundus Units Glucose Ketones Leukocytes Nitrite Labor Signs Protein Cervic Dilation Cervic Effacement Cervic Station Type Weight in lbs Pre/Post Dialysis Refused BP Diastolic BP Location Tested BP Systolic BP Type Fetus Heart Rate Present Fetus Movement Comments Flowsheet Date 06/15/2024 Rivera Score Blood Edema Fundus Height Fundus Units Glucose Ketones Leukocytes Nitrite Labor Signs Protein Cervic Dilation Cervic Effacement Cervic Station Type Weight in lbs Pre/Post Dialysis Refused Weight 231.791903603346 BP Diastolic BP Location Tested BP Systolic BP Type 71 L arm 109 sitting Fetus Heart Rate Present A 144 Fetus Movement Comments no complaints, no problems, routine care, no contractions, no vaginal bleeding, no loss of fluid, no cramping, circumvallate placenta and seen today, incomplete anatomy scan Flowsheet Date 07/13/2024 Rivera Score Blood Edema Fundus Height Fundus Units Glucose Ketones Leukocytes Nitrite Labor Signs Protein Cervic Dilation Cervic Effacement Cervic Station Type Weight in lbs Pre/Post Dialysis Refused BP Diastolic BP Location Tested BP Systolic BP Type Fetus Heart Rate Present Fetus Movement Comments Flowsheet Date 07/13/2024 Rivera Score Blood Edema Fundus Height Fundus Units Glucose Ketones Leukocytes Nitrite Labor Signs Protein Cervic Dilation Cervic Effacement Cervic Station 24 cm Type Weight in lbs Pre/Post Dialysis Refused 235.227639506608 BP Diastolic BP Location Tested BP Systolic BP Type 74 L arm 122 sitting Fetus Heart Rate Present A 145 Fetus Movement A Yes Comments no complaints, no problems, routine care, no contractions, no vaginal bleeding, no loss of fluid, no cramping Flowsheet Date 08/07/2024 Rivera Score Blood Edema Fundus Height Fundus Units Glucose Ketones Leukocytes Nitrite Labor Signs Protein Cervic Dilation Cervic Effacement Cervic Station Type Weight in lbs Pre/Post Dialysis Refused 239.909471098393 BP Diastolic BP Location Tested BP Systolic BP Type 77 L arm 115 sitting Fetus Heart Rate Present A 145 Fetus Movement A Yes Comments no complaints, no problems, routine care, no contractions, no vaginal bleeding, no loss of fluid, no cramping Flowsheet Date 08/25/2024 Rivera Score Blood Edema Fundus Height Fundus Units Glucose Ketones Leukocytes Nitrite Labor Signs Protein Cervic Dilation Cervic Effacement Cervic Station 30 cm Type Weight in lbs Pre/Post Dialysis Refused 241.24143801413 BP Diastolic BP Location Tested BP Systolic BP Type 68 L arm 122 sitting Fetus Heart Rate Present A 145 Fetus Movement A Yes Comments no complaints, no problems, routine care, no contractions, no vaginal bleeding, no loss of fluid, no cramping Flowsheet Date 09/13/2024 Rivera Score Blood Edema Fundus Height Fundus Units Glucose Ketones Leukocytes Nitrite Labor Signs Protein Cervic Dilation Cervic Effacement Cervic Station Type Weight in lbs Pre/Post Dialysis Refused BP Diastolic BP Location Tested BP Systolic BP Type Fetus Heart Rate Present Fetus Movement Comments Flowsheet Date 09/20/2024 Rivera Score Blood Edema Fundus Height Fundus Units Glucose Ketones Leukocytes Nitrite Labor Signs Protein Cervic Dilation Cervic Effacement Cervic Station neg none Type Weight in lbs Pre/Post Dialysis Refused Weight 245.479088854739 BP Diastolic BP Location Tested BP Systolic BP Type 81 L arm 122 sitting Fetus Heart Rate Present A 145 Fetus Movement A Yes Comments Patient c/o of [place] Grayson . No bleeding or LOF. Good movement. EFW 55% on last US, breech, will repeat presentation US. Discussed ECV vs PCS, patient desires ECV if still breech. Cephalic by Mine today. RTC 2 weeks. Flowsheet Date 10/04/2024 Rivera Score Blood Edema Fundus Height Fundus Units Glucose Ketones Leukocytes Nitrite Labor Signs Protein Cervic Dilation Cervic Effacement Cervic Station Type Weight in lbs Pre/Post Dialysis Refused BP Diastolic BP Location Tested BP Systolic BP Type Fetus Heart Rate Present Fetus Movement Comments Flowsheet Date 10/04/2024 Rivera Score Blood Edema Fundus Height Fundus Units Glucose Ketones Leukocytes Nitrite Labor Signs Protein Cervic Dilation Cervic Effacement Cervic Station neg none Type Weight in lbs Pre/Post Dialysis Refused Weight 247.698917757160 BP Diastolic BP Location Tested BP Systolic BP Type 78 L arm 121 sitting Fetus Heart Rate Present A 143 Fetus Movement A Yes Comments Patient c/o of [place] Gr[place] and some lower pressure. Good movement. No bleeding or LOF. EFW 62%, vertex! Considering induction but unsure today. Will continue to discuss. GBS and SVE performed. RTC 1 week. Flowsheet Date 10/11/2024 Rivera Score Blood Edema Fundus Height Fundus Units Glucose Ketones Leukocytes Nitrite Labor Signs Protein Cervic Dilation Cervic Effacement Cervic Station neg 2cm 50% -3 Type Weight in lbs Pre/Post Dialysis Refused Weight 251.762850025640 BP Diastolic BP Location Tested BP Systolic BP Type 78 L arm 119 sitting Fetus Heart Rate Present A 145 Fetus Movement A Yes Comments Patient c/o of slight nausea and swelling in feet. Good movement. No cramping or bleeding. Would like induction for 39 weeks. Will schedule around /3. SVE 2cm. RTC 1 week. Menstrual History Last Menstrual Date Menses Monthly On Bcp Conception Prior Menses Frequency Hcg Plus Date Menarche Onset Age 0401/27/2024 Genetic Screening And Infection History Question Response Note Mental Retardation/Autism false Patient's Age Will Be 35 Yea rs Or Older At Estimated Date of Delivery false Thalassemia (Ukrainian, Lithuanian, Mediterranean, Or Background): MCV < 80 false Neural Tube Defect (Meningom yelocele, Spina Bifida, Or Anencephaly) false Congenital Heart Defect false Down Syndrome false Michael-Sachs (eg, Congregational, Cajun, Hebrew-[place]) f alse Saul Disease false Sickle Cell Disease Or Trait () false Hemophilia Or Other Blood Disorders false Muscular Dystrophy false Cystic Fibrosis false Esmeralda's Chorea false Intellectual Disability/Autism false If Yes, Was Person Tested For Fragile X? false Other Inherited Genetic Or Chromosomal Disorder false Maternal Metabolic Disorder (eg, Type 1 Diabetes , PKU) false Patient Or Baby's Father Had A Child With Defects Not Listed Above false Recurrent Loss, Or A Stillbirth false Medications (including Suppl ements, Vitamins, Herbs, OTC Drugs), Illicit/Recreational Drugs, Alcohol true marijuana, tobacco If Yes, Agent(s) And Strength/Dosage false Any Other Genetic History false Live With Someone With TB Or Exposed To TB false Patient Or Partner Has History Of Genital Herpes false Rash Or Viral Illness Since Last Menstrual Perio d false History Of STD, Gonorrhea, Chlamydia, HPV, Syphi lis false Other Infection History false History of HIV false History of Hepatitis false Prior GBS-infected child false Hemoglobinopathy Or Carrier false Other Structural Defect false Recent Travel History Outside of Country false Delivery Information Delivery Date Delivery Type Labor Anesthesia Weeks Gestation Incision Type Labor Labor Length Hrs Delivered By Post Complications Tubal Sterilization Discharge Date Comments Discharge Information Feeding Method Contraceptive Method Maternal HG B and HCT Levels
--- OUTSIDE RECORDS SUMMARY | 2024-11-03 08:14 | XMS_ITS | Continuity of Care Document ---
Author Organization [facility] Address [address] [place] [address] Assessment No assessment recorded. Plan of Treatment Reminders Order Date Submit Date Provider Last Modified By Organization Details Last Modified Time Details Appointments POST 2024 03:15P Judson TRIPP MD Not available Not available Not available Lab None recorded . Referral None recorded . Procedures None recorded . Surgeries None recorded . Imaging US, obstetri c, follow-u p 2023 024 [email or web address] [place], [address], [place], [address], 09/13/2024 21:16:39 Medication Orders None recorded . Patient TargetsNo targets recorded. Patient InstructionsNo instructions recorded. Reason for Referral None Reported. Results Created Date Observation Date Name Description Value Unit Range Abnormal Flag Note LastModifiedBy Organization Detail LastModifiedTime 06/15/20 24 06/15/2024 US, obste tric, 2nd or 3rd trime ster No observ ation record ed. [email or web address] [place] [address], [place], [address], 06/15/2024 13:37:49 06/15/20 24 06/15/2024 US, obste tric, 2nd or 3rd trime ster No observ ation record ed. SHAUNAREGINALD [address], [place], [address], 06/16/2024 11:03:47 07/13/20 24 07/14/2024 US, obste tric, follo w-up No observ ation record ed. [email or web address] [place] [address], [place], [address], 07/14/2024 10:03:13 07/13/20 24 07/13/2024 US, obste tric, follo w-up No observ ation record ed. SHAUNA Nataliia [address], [place], [address], 09/27/2024 13:05:28 09/13/20 24 09/13/2024 US, obste tric, follo w-up No observ ation record ed. [email or web address] [place] [address], [place], [address], 09/13/2024 18:07:12 09/13/20 24 09/13/2024 US, obste tric, follo w-up No observ ation record ed. SHAUNA Nataliia [address], [place], [address], 09/27/2024 13:05:27 10/04/20 24 10/04/2024 US, obste tric, follo w-up No observ ation record ed. [email or web address] [place] [address], [place], [address], 10/04/2024 16:24:01 10/04/20 24 10/04/2024 US, obste tric, follo w-up No observ ation record ed. [email or web address] Natal[address], [place], [address], 10/04/2024 22:15:54 Result Notes None recorded. Problems Name Problem SNOMED Code Status Onset Date Resolution Date Notes Provider Name and Address Organization Details Recorded Time 87166985 Active 2023 GIANFRANCO TRIPP MD [address], [place], [address], [facility] 07/05/202 4 22:45:02 Placenta circumvallat a 4685710 Active 2023 Growth at 32wks Roberta Hudson [facility] 4 10:55:02 Problem Notes None recorded. Procedures Surgical History None recorded. Imaging Results Imaging Date Name Status LastModified by Organiz atryanne Details LastModified Time 09/13/2024 US, obstetric, follow-up completed [email or web address] [place] [address], [place], [address], 09/13/2024 18:07:12 09/13/2024 US, obstetric, follow-up completed SHAUNA [address] [facility], [place], [address], 09/27/2024 13:05:27 Procedure Notes None recorded. Medical Equipment None Reported. Allergies Allergen ID Allergen Name Allergen Category Reaction Reaction Severity Criticality Documentation Date Start Date Code Code System Note Provider Name and Address Organization Details Recorded Time 71795 latex environme nt,medica tion Not available Not available Not available 03/28/2024 97523 91 RxNorm Anna Marie Swayne [facility] 4 16:38:19 62420 banana extract food,medi cation Not available Not available Not available 03/28/2024 07343 9 RxNorm Anna Marie Swayne [facility] 4 16:38:30 84346 shrimp allergeni c extract food Not available Not available Not available 03/28/2024 85017 2 RxNorm Anna Marie Swayne [facility], [facility] 4 16:38:36 Medications Name Sig Start Date Stop Date Status Note LastModified by Organization Details LastModified Time quetiapin e 25 mg tablet take 1 tablet by oral route 2 times every day 04/24 completed Prescrib ed Elsewher e: Yes Loca tion: [facility] M odify By: marychuy klein DateTime : 07/14/20 17 04:30:00 PM Not Available Not Available Not Available Celexa 10 mg tablet take 1 tablet by oral route every day 04/24 completed Prescrib ed Elsewher e: Yes Loca tion: [place] [facility] odify By: marychuy Reyeste r DateTime : 03/27/20 16 08:45:00 AM Not Available Not Available Not Available Adderall 5 mg tablet take 1 tablet by oral route 2 times every day before breakfas t and at noon 04/24 completed Prescrib ed Elsewher e: Yes Loca tion: [place] [facility] odify By: marychuy Reyeste r DateTime : 03/27/20 16 08:45:00 AM [...] Elsewher e: Yes Loca tion: [place] [facility] odify By: marychuy Oliveros r DateTime : 07/14/20 17 04:30:00 PM Not Available Not Available Not Available Lomedia 24 Fe 1 mg-20 mcg (24)/75 mg (4) tablet take 1 tablet by oral route every day 04/24 completed Prescrib ed Elsewher e: No Locat ion: [facility] odify By: jonathan allen DateTime : 07/14/20 17 04:30:00 PM Not Available Not Available Not Available Aptensio XR 10 mg capsule,e xtended release sprinkle take 1 capsule by oral route every day in the morning 04/24 completed Prescrib ed Benny e: Yes Loca tion: [facility] M odify By: [email or web address] Encounbrittani r DateTime : 07/14/20 04:30:00 PM Not Available Not Available Not Available Se-- 19 29 mg iron-1 mg tablet active Not Available Not Available Not Available One-A-Day - 1 27 mg iron-800 mcg-235 mg capsule Take 1 capsule every day by oral route. 08/07 completed Not Available Not Available Not Available Vitals None Recorded Social History Question Answer Notes LastModified by Bawte ion Details LastModified Time In The 14 [...] (Food, seasonal, environmental ) N Other N Drug/Latex Allergies/Reactions N Blood Transfusion N Breast Cancer N Dermatologic Disorders N Lung Disease N Defects or Inherited Disease N Breast Problem N Gestational Diabetes N Hematologic disorders N Anesthesia Complications N History of STI N Deep Vein Thrombosis N Polycystic ovary syndrome N Anxiety Disorder N Autoimmune disease N Arthritis N Polyps N Infertility N Acid Reflux (GERD) N History of abnormal pap N Cancer N Varicosities N Stroke N Neurologic/Epilepsy N Endometriosis N High Cholesterol N Fibromyalgia N Headaches N Kidney Disease N Heart Problems N Thyroid Problems N Kidney or Bladder Problems N GI Problems N Eating Disorder [...] SNOMED-CT Code Diagnosis ICD10 Code Diagnosis Note [id number] Reilly Epps MD [place] [address] [address] 08/25/2024 15:33:19 08/25/2024 16:26:02 Routine care 504470475 Z34.92 [id number] Yue Matamoroscedrick [place] [address] [address] 09/13/2024 16:29:53 09/13/2024 17:12:47 Placenta circumvallata 7702141 O43.113 Z3A.32 Health Concerns Section Related Observation LastModified by Organization Detai ls LastModified Time None Recorded Concern Status LastModified by Organization Details LastModified Time None Recorded Payers Encounter Date Sequence Insurance Name Policy Number Policy Vasquez Covered Member ID Vasquez Member ID Guarantor Name 09/13/2024 1 [place] [facility] Lianne Valenzuela [id number] Lianne Valenzuela OBGyn Episode Ob Episode Information Episode Created Date Number of Fetuses Patient Bloodtype Patient rh Status Prepregnancy Weight lbs Domestic Partner Domestic Partner Phone Father Name Electronic Warfare Operator Status 04/28/20 24 1 A Positive OPEN Fetus Data First Name Last Name Admitted to NICU Weight (g) Sex Living Outcome Pediatric Complications Fetus ID Race Codes Race Delivery Type [id number] Problems Problem Notes Problem Name Start Date End Date Resolution Snomed Code Not e Placenta circumvallata 06/15/2024 388271 0 Growth at 32wks [place] Calculation Initial [...] Date Ultra Sound Latest Days Gestation 0 [email or web address] 04/28/2024 11/02/19 25 0 Pre-lucretia Flowsheet Flowsheet Date 2024 Rivera Score Blood Edema Fundus Height Fundus Units Glucose Ketones Leukocytes Nitrite Labor Signs Protein Cervic Dilation Cervic Effacement Cervic Station Type Weight in lbs Pre/Post Dialysis Refused Weight 233.88740351224 BP Diastolic BP Location Tested BP Systolic BP Type 63 116 Fetus Heart Rate Present Fetus Movement A No Comments Patient presents to [facility] care. Her has been thus far uncomplicated. She has a history of a macrosomic infant and . NT/NB wnl today, desires NIPT however will wait due to insurance issues. Will also hold new OB labs until insurance fixed. RTC 4 weeks. Discussed normal care. Flowsheet Date 05/26/2024 Rivera Score Blood Edema Fundus Height Fundus Units Glucose Ketones Leukocytes Nitrite Labor Signs Protein Cervic Dilation Cervic Effacement Cervic Station Type Weight in lbs Pre/Post Dialysis Refused Weight 231.814128816244 BP Diastolic BP Location Tested BP Systolic [...] Weight in lbs Pre/Post Dialysis Refused Weight 231.016490719607 BP Diastolic BP Location Tested BP Systolic [...] Type Weight in lbs Pre/Post Dialysis Refused 235.193669327998 BP Diastolic BP Location Tested BP Systolic [...] Type Weight in lbs Pre/Post Dialysis Refused 239.230618733140 BP Diastolic BP Location Tested BP Systolic [...] Type Weight in lbs Pre/Post Dialysis Refused 241.14372562451 BP Diastolic BP Location Tested BP Systolic [...] Weight in lbs Pre/Post Dialysis Refused Weight 245.711033141371 BP Diastolic BP Location Tested BP Systolic BP Type 81 L arm 122 sitting Fetus Heart Rate Present A 145 Fetus Movement A Yes Comments Patient c/o of [place] . No bleeding or LOF. Good [...] Weight in lbs Pre/Post Dialysis Refused Weight 247.481589841420 BP Diastolic BP Location Tested BP Systolic BP Type 78 L arm 121 sitting Fetus Heart Rate Present A 143 Fetus Movement A Yes Comments Patient c/o of [place] and some lower pressure. Good movement. [...] Weight in lbs Pre/Post Dialysis Refused Weight 251.692297453532 BP Diastolic BP Location Tested BP Systolic BP Type 78 L arm 119 sitting Fetus Heart Rate Present A 145 Fetus Movement A Yes Comments Patient c/o of slight nausea and swelling in feet. Good movement. No cramping or bleeding. Would like induction for 39 weeks. Will schedule around 1/3. SVE 2cm. RTC 1 week. Menstrual History Last Menstrual Date Menses Monthly On Bcp Conception Prior Menses Frequency Hcg Plus Date Menarche Onset Age 0401/27/2024 Genetic Screening And Infection History Question Response Note Mental Retardation/Autism false Patient's Age Will Be 35 Yea rs Or Older At Estimated Date of Delivery false Thalassemia (Estonian, Sami, Mediterranean, Or Background): MCV < 80 false Neural Tube Defect (Meningom yelocele, Spina Bifida, Or Anencephaly) false Congenital Heart Defect false Down Syndrome false Michael-Sachs (eg, Orthodoxy, Cajun, Malawian-Ecuadorean) f alse Saul Disease false Sickle Cell Disease Or Trait () false Hemophilia Or Other Blood Disorders false Muscular Dystrophy false Cystic Fibrosis false [place]'s Chorea false Intellectual Disability/Autism false If Yes, [...]
== END 2024-10-28 18:01 | disposition home or self-care (01) | DRG 560 ==
LOC: ANHLDR 04:51 → ANHOB2 22:42
PROVIDERS: Admitting Provider Obstetrics & Gynecology; PCP Family Medicine Adolescent Medicine; Visit Provider Obstetrics & Gynecology
DX: O99.824 Streptococcus B carrier state complicating childbirth (principal); Z37.0 Single live birth; Z3A.39 39 weeks gestation of pregnancy; O71.82 Other specified trauma to perineum and vulva; Z23 Encounter for immunization
CPT/HCPCS: 36415; 85014; 85018; 85025; 86592; 86703; 86762; 86850; 86900; 86901; 87340; 90471; 90656; 90715; A9270; G0008; G0432; J0290; J2590; J2795; J7120

== ENCOUNTER 2025-02-28 12:43 | Emergency (ER) | payer OTHER, SELFPAY ==
--- NOTE | ~2025-02-28 | CT_ITS ---
EXAMINATION: CT abdomen pelvis wo con DATE: 02/28/2025 15:11 INDICATION: Hematuria and abdominal pain TECHNIQUE: Computed tomography (CT) of the abdomen and pelvis was performed without intravenous contr ast. Automated exposure control and iterative reconstruction technique were employed. The dose-length product was 367.47 mGy-cm. COMPARISON: None FINDINGS: Lung bases are clear. Heart size normal. No pericardial or pleural effusion. Liver, gallbladder, sple en, pancreas, bilateral adrenal glands and kidneys are normal. No urolithiasis. Bowels including the appendix are normal. There is mild stranding along the margins of the incompletely distended bladder which could be seen with cystitis. The uterus and bilateral adnexa are unremarkable. No free intraper itoneal gas or fluid. No pathologically enlarged abdominal or pelvic lymphadenopathy. Bones are unrem arkable. IMPRESSION: 1. Mild stranding surrounding the partially decompressed bladder which could be seen with cystitis. C orrelate with urinalysis. Reviewed, dictated and finalized at location A. IMPRESSION: 1. Mild stranding surrounding the partially decompressed bladder which could be seen with cystitis. Correlate with urinalysis.
[2025-02-28 12:50] VITALS: BP 128/77; PULSE 98; RESP 16; TEMP 36.4; O2SAT 98
--- OUTSIDE RECORDS SUMMARY | 2025-02-28 12:50 | XMS_ITS | Patient Health Record ---
Author Organization [facility] Address [address] [place] [address] Care Team Providers Care Informatics Developer Name Role Phone MorrisRj moran Primary Care Provider Gama Caseyyn Unavailable [phone] Reason For Referral No Information Medications Medication SIG (Take, Route, Frequency, Duration) Notes Start Date End Date Status [place] Carbonate ER 450 MG 1 tablet at bedtime Orally Once a day for 30 day(s) Active SEROquel 100 MG 1 tablet at bedtime Orally Once a day for 30 day(s) Active Vyvanse 40 MG 1 capsule in the mor adri Orally Once a day for 30 days 12/25/2020 Active Sertraline HCl 100 MG 1 tablet Orally On ce a day for 30 days Active Social History Tobacco Use: Social History Observation Description Date Details (start date - stop date) Never Smoker NA - NA Sex Assigned At : Social History Observation Description Sex Assigned At Female Dont use, Tobacco Use/Smoking Question Answer Notes Are you a nonsmoker PRAPARE Question Answer Notes Date Completed/Updated: 01/18/2025 What is your current housing situation? I have h ousing Are you worried about losing your housing? Yes What is the highest level of school that you have finished? More than high school What is your current work situation? Unemployed and seeking work In the past year, have you o r any family members you live with been unable to get any of the following when it was really needed? Check all that apply Phone Has lack of transportation k ept you from medical appointments, meetings, work or from getting things needed for daily living? Yes, it has kept me from medical appointments or from getting my medications How often do you see or talk to people that you care about and feel close to? (For example: talking to friends on the phone, visiting friends or family, going to evangelical or club meetings) Less than once a week How stressed are you? Stress is when someone feels tense, nervous, anxious, or can\t sleep at night because their mind is troubled Quite a bit In the past year have you sp ent more than 2 nights in a row in a halfway, correction, fdc center, or juvenile correctional facility? No Do you feel physically and e motionally safe where you currently live? Yes In the past year, have you b een afraid of your partner or ex-partner? No PRAPARE Score: 11 Problems Problem Type SNOMED Code ICD Code Onset Dates Problem Status W/U Status Risk Notes Problem 88648170 Attention defici t hyperactivity disorder (ADHD), combined type (F90.2) Active confirmed Problem 046142816 Autism (F84.0) Active confirmed Problem 11574375 Bipolar 1 disorder, mixed (F31.60) Active confirmed Encounters Encounter Location Date Provider Diagnosis [address] [place] [address] 01/25/2025 Mary Casey Plan Of Treatment No Information Insurance Providers Payer Name Payer Address Payer Phone Subscriber Number Group Number Insured Name Patient Relationship to Insured Coverage Start Date Coverage End Date [employer] [facility] [address] [place] [address] [id number] Kym Wodos Child - Insured has Financial Responsibility 5 Medical (General) History Medical History History ICD Code Depression, unspecified depression type Anxiety Mood disorder Surgical History Surgery Date(Month/Year) Hospitalization History Reason Date(Month/Year) SI 04/2018 SI/aggression 04/2018 anger/ out of control 05/2018 anger, impulse control, SI 05/2018 mood swings 06/2018 behavior concerns 07/12
--- OUTSIDE RECORDS SUMMARY | 2025-02-28 12:50 | XMS_ITS | Data Portability ---
Author Organization [facility] [place] Address [address] [place] [address] Assessment No assessment recorded. Plan of Treatment Reminders Order Date Submit Date Provider Last Modified By Organization Details Last Modified Time Details Appointments None record ed. Lab None record ed. Referral None record ed. Procedures None record ed. Surgeries None record ed. Imaging US, obstet tatyana, follow -up 024 10/04/20 24 [address], [address], [place], [address], 4 22:38:15 US, obstet tatyana, follow -up 024 09/13/[address] [facility] [address], [place], [address], 4 21:16:39 Medication Orders None record ed. Patient TargetsNo targets recorded. Patient InstructionsNo instructions recorded. Reason for Referral None Reported. Results Created Date Observation Date Name Description Value Unit Range Abnormal Flag Note LastModifiedBy Organization Detail LastModifiedTime 10/04/20 24 10/04/2024 CULTU RE: GROUP B STREP SCREE N, REFLE X SUSCE PTIBI LITY result report SEE RESULT S BELOW abnormal Test: Cultu re: Group B Strep , Refle x Susce ptibi lity ([facility]/ [facility] ) Speci men Sourc e: Vagin a/Rec kerline Speci men Type: Vagin al/Re ctal Speci men Date: 10/04 1624 Resul t Date: 10/08 1930 Resul t Statu s: Final resul t Abnor mal: Yes Resul ting Lab: [facility] [address] [facility] [address] Tel: CULTU RE ----- ----- ----- --- Posit christy for Strep tococ cus agala ctiae (Grou p B) (Abno rmal) Clind amyci n susce ptibl e, eryth romyc in resis tant. The clind amyci n induc tion test ( D-t est ) is negat christy, there fore clind amyci n shoul d be clini brian effec tive again st this isola te. Not Available [facility] (Lab) [address], [place], [address], 10/08/2024 20:33:31 09/13/20 24 09/13/2024 US, obste tric, follo w-up No observ ation record ed. [email or web address] [facility] [address], [place], [address], 09/13/2024 18:07:12 09/13/20 24 09/13/2024 US, obste tric, follo w-up No observ ation record ed. SHAUNA [address], [place], [address], 09/27/2024 13:05:27 10/04/20 24 10/04/2024 US, obste tric, follo w-up No observ ation record ed. [email or web address] [facility] [address], [place], [address], 10/04/2024 16:24:01 10/04/20 24 10/04/2024 US, obste tric, follo w-up No observ ation record ed. [email or web address] [address], [place], [address], 10/04/2024 22:15:54 Result Notes None recorded. Problems Name Problem SNOMED Code Status Onset Date Resolution Date Notes Provider Name and Address Organization Details Recorded Time 50903427 Completed 202311/28/2024 FELICIA Nelson [facility] 5 11:15:53 Placenta circumvalla ta 9766235 Completed 2023 Growth at 32wks Roberta Hudson [facility] 4 10:55:02 Problem Notes None recorded. Procedures Surgical History None recorded. Imaging Results Imaging Date Name Status LastModified by Organiz ation Details LastModified Time 09/13/2024 US, obstetric, follow-up completed [email or web address] [place] [id number], [place], [address], 09/13/2024 18:07:12 09/13/2024 US, obstetric, follow-up completed SHAUNA Natal[address], [place], [address], 09/27/2024 13:05:27 10/04/2024 US, obstetric, follow-up completed [email or web address] [place] [address], [place], [address], 10/04/2024 16:24:01 10/04/2024 US, obstetric, follow-up completed [email or web address] [address], [place], [address], 10/04/2024 22:15:54 Procedure Notes None recorded. Medical Equipment None Reported. Allergies Allergen ID Allergen Name Allergen Category Reaction Reaction Severity Criticality Documentation Date Start Date Code Code System Note Provider Name and Address Organization Details Recorded Time 48441 latex environme nt,medica tion Not available Not available Not available 03/28/2024 62565 91 RxNorm Anna Marie Melly [facility] 4 16:38:19 30139 banana extract food,medi cation Not available Not available Not available 03/28/2024 75691 9 RxNorm Anna Marie Pickard null, [facility] 4 16:38:30 42465 shrimp allergeni c extract food Not available Not available Not available 03/28/2024 17588 2 RxNorm Anna Marie Pickard null, [facility] 4 16:38:36 Medications Name Sig Start Date Stop Date Status Note LastModified by Organization Details LastModified Time quetiapin e 25 mg tablet take 1 tablet by oral route 2 times every day 04/24 completed Prescrib ed Elsewher e: Yes Loca tion: [facility] odify By: [email or web address] Encounte r DateTime : 07/14/20 17 04:30:00 PM Not Available Not Available Not Available Celexa 10 mg tablet take 1 tablet by oral route every day 04/24 completed Prescrib ed Elsewher e: Yes Loca tion: [facility] odify By: [email or web address] Encounte r DateTime : 03/27/20 16 08:45:00 AM Not Available Not Available Not Available Adderall 5 mg tablet take 1 tablet by oral route 2 times every day before breakfas t and at noon 04/24 completed Prescrib ed Elsewher e: Yes Loca tion: [facility] odify By: [email or web address] Encounte r DateTime [...] completed Not Available Not Available Not Available docusate sodium 100 mg capsule TAKE 1 CAPSULE BY MOUTH EVERY DAY active Not Available Not Available No t Available metoclopr amide 10 mg tablet Take 1 tablet 4 times a day by oral route. 2023 active Not Available Not Available Not Avai lable escitalop siria 10 mg tablet TAKE 1 TABLET BY MOUTH EVERY DAY active Not Available Not Available No t Available Fish Oil active Not Available Not Avai lable Not Available triamcino lone acetonide 0.147 mg/gram topical aerosol apply by topical route 3 times every day to the affected area(s) 04/24 completed Prescrib ed Elsewher e: Yes [facility] odify By: [email or web address] Encounte r DateTime : 07/14/20 17 04:30:00 PM Not Available Not Available Not Available Lomedia 24 Fe 1 mg-20 mcg (24)/75 mg (4) tablet take 1 tablet by oral route every day 04/24 completed Prescrib ed Elsewher e: No Locat ion: [facility] odify By: jonathan allen DateTime : 07/14/20 17 04:30:00 PM Not Available Not Available Not Available Aptensio XR 10 mg capsule,e xtended release sprinkle take 1 capsule by oral route every day in the morning 04/24 completed Prescrib ed Elsewher e: Yes Loca tion: [facility] odify By: [email or web address] Encounte r DateTime : 07/14/20 17 04:30:00 PM Not Available Not Available Not Available Se- 19 29 mg iron-1 mg tablet active Not Available Not Available Not Available One-A-Day - 1 27 mg iron-800 mcg-235 mg capsule Take 1 capsule every day by oral route. 08/07 completed Not Available Not Available Not Available Vitals Date Recorded Body height Body mass index (BMI) [Percentile] Per age and sex Body mass index (BMI) Body weight Systolic blood pressure Diastolic blood pressure Provider Name and Address Organization Details Last Updated DateTime 4 182.88 cm 96 % 33.2 kg/m2 354024. 13 g 122 mm[Hg] 81 mm[Hg] Carola Kingston [facility] 4 14:55:12 Date Recorded Body height Body mass index (BMI) Body mass index (BMI) [Percentile] Per age and sex Body weight Systolic blood pressure Diastolic blood pressure Provider Name and Address Organization Details Last Updated DateTime 4 182.88 cm 33.5 kg/m2 96 % 637370. 32 g 121 mm[Hg] 78 mm[Hg] [facility] 4 15:30:50 Date Recorded Body height Body mass index (BMI) [Percentile] Per age and sex Body mass index (BMI) Body weight Systolic blood pressure Diastolic blood pressure Provider Name and Address Organization Details Last Updated DateTime 4 182.88 cm 96 % 34 kg/m2 427395. 68 g 119 mm[Hg] 78 mm[Hg] Carola [facility] 4 11:59:22 Social History Question Answer Notes LastModified by [...] SNOMED-CT Code Diagnosis ICD10 Code Diagnosis Note [id number] Reilly Epps MD [facility] [address] [address] 03/28/2024 15:52:30 03/28/2024 16:24:11 [id number] GIANFRANCO MCCONNELL MD [facility] [address] [address] 03/28/2024 16:08:57 03/29/2024 10:11:24 Nausea and vomiting 33581347 R11.2 test positive 875568264 Z32.01 1. Exam today within normal limits.2. Ultrasound today confirms GA and viability. EDC . GC/Clamydi a testing done: will f/u as indicated. 4. ACOG guidelines and plan of care for reviewed with patient. All questions answered.5 . Return to office at 12 weeks for new OB visit6. Will need new OB labs at next visit.7. Genetic screening: desires. Tobacco user 551692750 Z 72.0 - discussed cessation Marijuana user 516472046 F12.90 - discussed cessation [id number] GIANFRANCO MCCONNELL MD [facility] [address] [address] 2024 13:24:23 05/01/2024 05:25:39 Routine care 003674859 Z34.91 [id number] MD Ashutosh BROWNING [address] [address] 05/26/2024 16:33:44 05/30/2024 03:16:10 Routine care 284897979 Z34.91 screening 2437 55997 Z36.9 Genetic in vestigation procedure 44096338 Z13.79 Nausea and vomiting 1693 2000 R11.2 Gestation period, 17 weeks 27383871 Z3A.17 [id number] MD Ashutosh Blue [address] [address] 06/15/2024 11:57:44 06/15/2024 14:02:41 screening for malformation 529001259 Z36.3 Z3A.20 [id number] MD Ashutosh Blue [address] [address] 06/15/2024 13:38:04 06/15/2024 15:39:17 Urinary symptoms 527072008 R39.9 Routine an tenatal care 504586423 Z34.92 [id number] MD Ashutosh Blue [address] [address] 07/13/2024 15:04:15 07/13/2024 16:28:56 Routine care 040697171 Z34.92 [id number] MD Ashutosh Blue [address] [address] 07/13/2024 15:10:56 07/13/2024 15:43:39 screening 963877038 Z36.2 Z3A.24 [id number] MD Ashutosh Blue [address] [address] 08/07/2024 14:54:20 08/07/2024 15:37:00 Routine care 158193763 Z34.92 [id number] MD Ashutosh Blue [address] [address] 08/25/2024 15:33:19 08/25/2024 16:26:02 Routine care 908383371 Z34.92 [id number] MD Ashutosh Blue [address] [address] 09/13/2024 16:29:53 09/13/2024 17:12:47 Placenta circumvallata 0653119 O43.113 Z3A.32 [id number] GIANFRANCO MCCONNELL MD [facility] [address] [address] 09/20/2024 14:48:54 09/20/2024 15:56:01 Breech presentation 7690416 O32.1XX9 - repeat presentati on US at 36 weeks Placenta circumvallata 7551421 O43.119 - growth US wnl at 32 weeks Gestation period, 33 weeks 91716973 Z3A.33 [id number] Reilly Epps MD [facility] [address] [address] 10/04/2024 14:48:03 10/04/2024 15:32:43 Malpresentation of fetus 42487974 O32.9XX9 Z03.74 Z3A.35 [id number] GIANFRANCO MCCONNELL MD [facility] [address] [address] 10/04/2024 14:48:36 10/04/2024 15:56:32 Placenta circumvallata 0638399 O43.119 - growth US wnl at 32 weeks and 36 weeks Gestation period, 35 weeks 21846863 Z3A.35 - GBS collected- continue PNV- rtc 1 week [id number] GIANFRANCO MCCONNELL MD [facility] [address] [address] 10/11/2024 11:52:36 10/11/2024 12:20:27 Placenta circumvallata 6757185 O43.119 - growth US wnl at 32 weeks and 36 weeks Gestation period, 36 weeks 51582863 Z3A.36 - continue PNV Health Concerns Section Related Observation LastModified by Organization Detai ls LastModified Time None Recorded Concern Status LastModified by Organization Details LastModified Time None Recorded Advance Directives Directive None Recorded Payers Encounter Date Sequence Insurance Name Policy Number Policy Vasquez Covered Member ID Vasquez Member ID Guarantor Name 09/13/2024 1 [place] [facility] Lianne Valenzuela [id number] Lianne Valenzuela 09/20/2024 1 [place] [facility] Lianne Valenzuela [id number] Lianne Valenzuela 10/04/2024 1 [place] [facility] Lianne Valenzuela [id number] Lianne Valenzuela 10/04/2024 1 [place] [facility] Lianne Valenzuela [id number] Lianne Valenzuela 10/11/2024 1 [place] [facility] Lianne Valenzuela [id number] Lianne Valenzuela OBGyn Episode Ob Episode Information Episode Created Date Number of Fetuses Patient Bloodtype Patient rh Status Prepregnancy Weight lbs Domestic Partner Domestic Partner Phone Father Name Trackless Trolley Driver Status 04/28/20 24 1 A Positive CLOSED Fetus Data First Name Last Name Admitted to NICU Weight (g) Sex Living Outcome Pediatric Complications Fetus ID Race Codes Race Delivery Type 3572.03 7 M [id number] Problems Problem Notes Problem Name Start Date End Date Resolution Snomed Code Not e Placenta circumvallata 06/15/2024 409515 0 Growth at 32wks Triston Calculation Initial [...] Date Ultra Sound Latest Days Gestation 0 [email or web address] 04/28/2024 11/02/19 25 0 Pre- Flowsheet Flowsheet Date 2024 Rivera Score Blood Edema Fundus Height Fundus Units Glucose Ketones Leukocytes Nitrite Labor Signs Protein Cervic Dilation Cervic Effacement Cervic Station Type Weight in lbs Pre/Post Dialysis Refused Weight 233.95560743434 BP Diastolic BP Location Tested BP Systolic BP Type 63 116 Fetus Heart Rate Present Fetus Movement A No Comments Patient presents to [facility] care. Her has been thus far [...] Weight in lbs Pre/Post Dialysis Refused Weight 231.781523715051 BP Diastolic BP Location Tested BP Systolic [...] Weight in lbs Pre/Post Dialysis Refused Weight 231.979862158503 BP Diastolic BP Location Tested BP Systolic [...] Type Weight in lbs Pre/Post Dialysis Refused 235.659142737524 BP Diastolic BP Location Tested BP Systolic [...] Type Weight in lbs Pre/Post Dialysis Refused 239.811679712347 BP Diastolic BP Location Tested BP Systolic [...] Type Weight in lbs Pre/Post Dialysis Refused 241.91897177333 BP Diastolic BP Location Tested BP Systolic [...] Weight in lbs Pre/Post Dialysis Refused Weight 245.633389348438 BP Diastolic BP Location Tested BP Systolic BP Type 81 L arm 122 sitting Fetus Heart Rate Present A 145 Fetus Movement A Yes Comments Patient c/o of [place] . No bleeding or LOF. Good [...] Weight in lbs Pre/Post Dialysis Refused Weight 247.284479480068 BP Diastolic BP Location Tested BP Systolic BP Type 78 L arm 121 sitting Fetus Heart Rate Present A 143 Fetus Movement A Yes Comments Patient c/o of [place] and some lower pressure. Good movement. [...] Weight in lbs Pre/Post Dialysis Refused Weight 251.113332366804 BP Diastolic BP Location Tested BP Systolic BP Type 78 L arm 119 sitting Fetus Heart Rate Present A 145 Fetus Movement A Yes Comments Patient c/o of slight nausea and swelling in feet. Good movement. No cramping or bleeding. Would like induction for 39 weeks. Will schedule around 10/27. SVE 2cm. RTC 1 week. Menstrual History Last Menstrual Date Menses Monthly On Bcp Conception Prior Menses Frequency Hcg Plus Date Menarche Onset Age 0401/27/2024 Genetic Screening And Infection History Question Response Note Mental Retardation/Autism false Patient's Age Will Be 35 Yea rs Or Older At Estimated Date of Delivery false Thalassemia (Chadian, Uruguayan, Mediterranean, Or Background): MCV < 80 false Neural Tube Defect (Meningom yelocele, Spina Bifida, Or Anencephaly) false Congenital Heart Defect false Down Syndrome false Michael-Sachs (eg, Jain, Cajun, Estonian-[place]) f alse Saul Disease false Sickle Cell Disease Or Trait () false Hemophilia Or Other Blood Disorders false Muscular Dystrophy false Cystic Fibrosis false [place]'s Chorea false Intellectual Disability/Autism false If Yes, [...] Post Complications Tubal Sterilization Discharge Date Comments 5 None 39.1 Gianfranco Mcconnell MD Discharge Information Feeding Method Contraceptive Method Maternal HG B and HCT Levels Ob Episode Information Episode Created Date Number of Fetuses Patient Bloodtype Patient rh Status Prepregnancy Weight lbs Domestic Partner Domestic Partner Phone Father Name Trackless Trolley Driver Status 03/28/20 24 1 CLOSED Fetus Data First Name Last Name Admitted to NICU Weight (g) Sex Living Outcome Pediatric Complications Fetus ID Race Codes Race Delivery Type 4365.82 3 F Full Term [id number] Vaginal Delivery Triston Calculation Initial Triston Date Initial Exam Date Initial Exam Provider Initial Ultrasound Date Last Menstrual Period Date Ultra Sound Weeks Gestation 0 Eighteen To Twenty Week Triston Update Ultra Sound Date Fundal Height At Umbil Quickening Date Ultra Sound Latest Weeks Gestation Final Triston Confirmed By Final Triston Confirmed Date Final Triston Date Ultra Sound Latest Days Gestation 0 0 Menstrual History Last Menstrual Date Menses Monthly On Bcp Conception Prior Menses Frequency Hcg Plus Date Menarche Onset Age Delivery Information Delivery Date Delivery Type Labor Anesthesia Weeks Gestation Incision Type Labor Labor Length Hrs Delivered By Post Complications Tubal Sterilization Discharge Date Comments 2 Discharge Information Feeding Method Contraceptive Method Maternal HG B and HCT Levels
--- OUTSIDE RECORDS SUMMARY | 2025-02-28 12:50 | XMS_ITS ---
Author Organization [facility] Address [address] [place] [address] Care Team Providers Care Slack Line Yarder Name Role Phone Rj Morris Primary Care Provider REASON FOR VISIT New Patient Psych Eval Social History Sex Assigned At : Social History Observation Description Sex Assigned At Female Encounters Encounter Location Date Provider Diagnosis [address] [place] [address] 02/16/2025 Rj Morris Plan Of Treatment No Information Progress Notes * Jesica DOMINGUEZnDOB:[birth year] (19 yo F)Acc No.[id number]:02/16/2025 UNLOCKED PROGRESS NOTE Patient: Jesica WORTHINGTONn Provider: Laurence Morris APN :2005 A ge:19 Y S ex:Female Date:02/16/2025 Address[facility] Subjective: * Chief Complaints: * 1 . New Patient Psych Eval. * Medical History: Objective: * Vitals: Assessment: Plan: * Treatment: * * Electronic signature of Rj Morris on 02/28/2025 at 12:49 PM CDT Sign off status: Pending * Provider: Laurence Morris APN Date: 02/16/2025 Generated for Printi ng/Faxing/eTransmitting on: 0 02/28/2025 12:49 PM CDT
--- NOTE | 2025-02-28 13:36 | ED_ITS ---
HPI - Female Genitourinary General Chief complaint: Urogenital-Female <Jamila Sauceda PA-C - Last Filed: 02/28/25 16:47> Stated complaint: hematuria <DINAH Godoy Last Filed: 02/28/25 16:47> Time Seen by Provider: 02/28/25 13:36 <Jamila Sauceda PA-C - Last Filed: 02/28/25 16:47> Focused HPI: This is a 19 year old female that presents to the ER for hematuria. Ongoing over the last 2 days. Reports dysuria, nausea. Reports right sided lower abdominal pain. Reports she is 3 months post-, she is not currently breast feeding. Denies fevers, vomiting. GENERAL: Well-appearing, well-nourished, and in no acute distress. HEAD: Normocephalic, atraumatic. CHEST: Clear to auscultation. ?No respiratory distress. HEART: Regular rate and rhythm.? NEURO: ?Alert and oriented x3. Patient screened in triage and initial orders placed.? ?Additional care and disposition to be based upon?diagnostic testing and treatment. <Jamila Sauceda PA-C - Last Filed: 02/28/25 16:47> History of Present Illness HPI Narrative: Agree with the HPI above <Harman Yancey MD - Last Filed: 02/28/25 16:42> Related Data Allergies/Adverse reactions: Allergies Allergy/AdvReac Type Severity Reaction Status Date / Time latex Allergy Unknown Rash Verified 10/27/24 07:19 banana Allergy Vomiting Verified 10/27/24 07:19 shrimp Allergy Unknown Verified 10/27/24 07:20 <Jamila Sauceda PA-C - Last Filed: 02/28/25 16:47> Review of Systems 2 Review of Systems: as reviewed above in the HPI <Harman Yancey MD - Last Filed: 02/28/25 16:42> PMFSH Family History Family History: Family History Grandparent Hypertension <Jamila Sauceda PA-C - Last Filed: 02/28/25 16:47> Social History Social History: Social History Smoking status: Current every day smoker Tobacco type: cigarettes and e-cigarettes/vaping Second hand tobacco smoke exposure: No Substance use: current Last use: 10/20/2024 Do You Feel Safe in your Home?: Yes Lack of Transportation: No Lack of Food: Never True Current Housing: I Have Housing Concerned About Future Housing: No Difficulty Paying Gas/Electric Bills: No Difficulty Paying for Meds: No Currently Unemployed: No Education: Associate Degree Difficulty w/ Childcare or Family Care: No Spiritual care concerns: No <Jamila Sauceda PA-C - Last Filed: 02/28/25 16:47> Exam 2 Narrative: GENERAL: obese but overall well-appearing not any acute distress HEAD: [Normocephalic, atraumatic.] EYES: [PERRLA and EOMI.] ENT: Nares clear, no rhinorrhea or epistaxis. Mucous membranes moist. NECK: Supple. CHEST: [Clear to auscultation. No respiratory distress.] HEART: [Regular rate and rhythm]. No murmur heard. [Normal peripheral pulses.] ABDOMEN: [Soft, nondistended], [nontender], [No rigidity or guarding] EXTREMITIES: Normal range of motion. [No edema.] SKIN: Warm, dry, no rash. NEURO: [No focal deficits]. Alert and oriented [x3.] PSYCH: [Normal mood and affect.] <Harman Yancey MD - Last Filed: 02/28/25 16:42> Course Vital Signs Vital signs: Vital Signs Temperature 97.6 F 02/28/25 12:50 Pulse Rate 98 02/28/25 12:50 Respiratory Rate 16 02/28/25 12:50 Blood Pressure 128/77 02/28/25 12:50 Pulse Oximetry 98 02/28/25 12:50 Oxygen Delivery Room Air 02/28/25 12:50 Temperature 97.6 F 02/28/25 12:50 Pulse Rate 98 02/28/25 12:50 Respiratory Rate 16 02/28/25 12:50 Blood Pressure 128/77 02/28/25 12:50 Pulse Oximetry 98 02/28/25 12:50 Oxygen Delivery Room Air 02/28/25 12:50 <Jamila Sauceda PA-C - Last Filed: 02/28/25 16:47> Vital Signs Temperature 97.6 F 02/28/25 12:50 Pulse Rate 98 02/28/25 12:50 Respiratory Rate 16 02/28/25 12:50 Blood Pressure 128/77 02/28/25 12:50 Pulse Oximetry 98 02/28/25 12:50 Oxygen Delivery Room Air 02/28/25 12:50 Temperature 97.6 F 02/28/25 12:50 Pulse Rate 98 02/28/25 12:50 Respiratory Rate 16 02/28/25 12:50 Blood Pressure 128/77 02/28/25 12:50 Pulse Oximetry 98 02/28/25 12:50 Oxygen Delivery Room Air 02/28/25 12:50 <Harman Yancey MD - Last Filed: 02/28/25 16:42> MDM - Female Genitourinary MDM Narrative Medical decision making narrative: 19-year-old female presenting to the emergency depart for evaluation of hematuria x2 days associated with some right-sided flank/ groin pain. States that she passed a blood clot in her urinary stream yesterday. Endorses burning with urination. Endorses possibility of a chance of . Recent several months ago. She is overall well-appearing not any acute distress, resting comfortably in her bed sitting upright. Normal vital signs with any fever, tachycardia, tachypnea or blood pressure concerns. Soft nontender nondistended abdomen. Suspicion presently is for potential urinary tract infection versus hemorrhagic cystitis versus potential vaginal bleeding rather than urethral bleeding, also possible. Blood was obtained as well as urinalysis and urine test. test was negative and a CT scan of the abdomen was ordered this time for further evaluation of her right-sided flank pain with hematuria that could also be kidney stone related. Workup shows a slight leukocytosis of 16.2, normal hemoglobin and Mildly elevated platelet count. Electrolytes unremarkable. Normal renal function, normal glucose and hepatic function. Urinalysis shows red blood cells, white blood cells, leukocyte esterase and bacteria consistent with hemorrhagic cystitis versus urinary tract infection. Urine is negative. CT scan shows mild stranding around the bladder consistent with cystitis and her urinary analysis. Patient will be treated with a dose of bactrim here and sent home with Bactrim. Patient was encouraged to follow-up with regular primary care provider and safely discharged home at this time with return precautions. < Hamran Yancey MD - Last Filed: 02/28/25 16:42> Medical Records Attestation: I reviewed the patient's medical records. <Harman Yancey MD - Last Filed: 02/28/25 16:42> Lab Data Attestation: I reviewed the patient's lab results. <Harman Yancey MD - Last Filed: 02/28/25 16:42> Result diagrams: 02/28/25 13:55 02/28/25 13:55 <Jamila Sauceda PA-C - Last Filed: 02/28/25 16:47> Labs: Lab Results 02/28/25 02/28/25 Range/Units 13:55 14:16 WBC 16.2 H (4.5-10.0) K/mm3 RBC 4.65 (4.2-5.4) M/mm3 Hgb 12.7 (12.0-15.0) g/dL Hct 40.3 (37.0-47.0) % MCV 86.7 (80-100) fl MCH 27.3 (26-34) pg MCHC 31.5 L (32-36) g/dl RDW 12.4 (11.5-14.5) % Plt Count 397 H (150-375) k/mm3 MPV 10.1 (7.4-10.4) fl Immature Gran % (Auto) 0.4 (0-0.5) % Neut % (Auto) 79.7 H (45.5-73.1) % Lymph % (Auto) 12.9 L (18.3-44.2) % [place] % (Auto) 5.3 (2.6-8.5) % Eos % (Auto) 1.4 (0-4.4) % Baso % (Auto) 0.3 (0.2-1.2) % Lymph # (Auto) 2.09 (0.9-3.2) K/mm3 [place] # (Auto) 0.9 H (0.1-0.6) K/mm3 Eos # (Auto) 0.2 (0-0.3) K/mm3 Baso # (Auto) 0.1 (0.0-0.1) K/mm3 Abs Immat Gran (auto) 0.07 H (0.00-0.031) K/mm3 Absolute Neuts (auto) 12.9 H (1.3-6.7) K/mm3 Absolute Nucleated RBC 0.000 (0.0-0.012) K/mm3 Nucleated RBC % 0.0 (0.0-0.2) % Sodium 140 (137-145) mmol/L Potassium 3.9 (3.4-5.0) mmol/L Chloride 104 (98-107) mmol/L Carbon Dioxide 25 (22-30) mmol/L Anion Gap 11 (4-12) mmol/L BUN 13 (7-17) mg/dL Creatinine 0.87 (0.7-1.0) mg/dL Estim Creat Clear Calc 122 ml/min Estimated GFR > 60 (59 - ) Glucose 110 (65-110) mg/dL Calcium 9.4 (8.4-10.2) mg/dL Total Bilirubin 0.8 (0.2-1.3) mg/dL AST 20 (14-36) U/L ALT 22 (6-35) U/L Alkaline Phosphatase 68 (38-126) U/L Total Protein 8.0 (6.3-8.2) g/dL Albumin 4.6 (3.5-5.1) g/dL Lipase 57 (23-300) U/L Urine Color Dark yellow (Yellow) Urine Appearance Turbid H (Clear) Urine pH 5.5 (5.0-9.0) Ur Specific [place] 1.027 (1.001-1.035) Urine Protein 3+ H (Negative) mg/dL Urine Glucose (UA) Negative (Negative) mg/dL Urine Ketones Trace H (Negative) mg/dL Ur Blood (Man) 3+ H (Negative) Urine Nitrate Negative (Negative) Urine Bilirubin Negative (Negative) Urine Urobilinogen 1.0 (<2.0) mg/dL Add Ur Microanalysis Reviewed Leukocyte Esterase Rfl 3+ H (Negative) GENARO/UL Urine RBC >100 H (0-2) /hpf Urine WBC >100 H (0-3) /hpf Ur Squamous Epith Cells Few (Few) /hpf Urine Bacteria Rare /hpf Urine Casts 3-5 Urine Mucus Present /lpf Urine Test Negative <Jamila Sauceda PA-C - Last Filed: 02/28/25 16:47> Lab Results 02/28/25 02/28/25 Range/Units 13:55 14:16 WBC 16.2 H (4.5-10.0) K/mm3 RBC 4.65 (4.2-5.4) M/mm3 Hgb 12.7 (12.0-15.0) g/dL Hct 40.3 (37.0-47.0) % MCV 86.7 (80-100) fl MCH 27.3 (26-34) pg MCHC 31.5 L (32-36) g/dl RDW 12.4 (11.5-14.5) % Plt Count 397 H (150-375) k/mm3 MPV 10.1 (7.4-10.4) fl Immature Gran % (Auto) 0.4 (0-0.5) % Neut % (Auto) 79.7 H (45.5-73.1) % Lymph % (Auto) 12.9 L (18.3-44.2) % [place] % (Auto) 5.3 (2.6-8.5) % Eos % (Auto) 1.4 (0-4.4) % Baso % (Auto) 0.3 (0.2-1.2) % Lymph # (Auto) 2.09 (0.9-3.2) K/mm3 [place] # (Auto) 0.9 H (0.1-0.6) K/mm3 Eos # (Auto) 0.2 (0-0.3) K/mm3 Baso # (Auto) 0.1 (0.0-0.1) K/mm3 Abs Immat Gran (auto) 0.07 H (0.00-0.031) K/mm3 Absolute Neuts (auto) 12.9 H (1.3-6.7) K/mm3 Absolute Nucleated RBC 0.000 (0.0-0.012) K/mm3 Nucleated RBC % 0.0 (0.0-0.2) % Sodium 140 (137-145) mmol/L Potassium 3.9 (3.4-5.0) mmol/L Chloride 104 (98-107) mmol/L Carbon Dioxide 25 (22-30) mmol/L Anion Gap 11 (4-12) mmol/L BUN 13 (7-17) mg/dL Creatinine 0.87 (0.7-1.0) mg/dL Estim Creat Clear Calc 122 ml/min Estimated GFR > 60 (59 - ) Glucose 110 (65-110) mg/dL Calcium 9.4 (8.4-10.2) mg/dL Total Bilirubin 0.8 (0.2-1.3) mg/dL AST 20 (14-36) U/L ALT 22 (6-35) U/L Alkaline Phosphatase 68 (38-126) U/L Total Protein 8.0 (6.3-8.2) g/dL Albumin 4.6 (3.5-5.1) g/dL Lipase 57 (23-300) U/L Urine Color Dark yellow (Yellow) Urine Appearance Turbid H (Clear) Urine pH 5.5 (5.0-9.0) Ur Specific [place] 1.027 (1.001-1.035) Urine Protein 3+ H (Negative) mg/dL Urine Glucose (UA) Negative (Negative) mg/dL Urine Ketones Trace H (Negative) mg/dL Ur Blood (Man) 3+ H (Negative) Urine Nitrate Negative (Negative) Urine Bilirubin Negative (Negative) Urine Urobilinogen 1.0 (<2.0) mg/dL Add Ur Microanalysis Reviewed Leukocyte Esterase Rfl 3+ H (Negative) GENARO/UL Urine RBC >100 H (0-2) /hpf Urine WBC >100 H (0-3) /hpf Ur Squamous Epith Cells Few (Few) /hpf Urine Bacteria Rare /hpf Urine Casts 3-5 Urine Mucus Present /lpf Urine Test Negative <Harman Yancey MD - Last Filed: 02/28/25 16:42> Imaging Data Attestation: I personally reviewed and interpreted this imaging study as follows: < Harman Yancey MD - Last Filed: 02/28/25 16:42> My impression: Impressions Abdomen/Pelvis CT 02/28/25 15:17 IMPRESSION: 1. Mild stranding surrounding the partially decompressed bladder which could be seen with cystitis. Correlate with urinalysis. <Harman Yancey MD - Last Filed: 02/28/25 16:42> Critical Care Time Critical Care Time Critical Care Time: No <Jamila Sauceda PA-C - Last Filed: 02/28/25 16:47> Discharge Plan Discharge Clinical Impression: Cystitis Urinary tract infection Qualifiers: Urinary tract infection type: acute cystitis Hematuria presence: with hematuria Qualified Code(s): N30.01 - Acute cystitis with hematuria <Jamila Sauceda PA-C - Last Filed: 02/28/25 16:47> Patient Disposition: Home <Jamila Sauceda PA-C - Last Filed: 02/28/25 16:47> Condition: Stable <Jamila Sauceda PA-C - Last Filed: 02/28/25 16:47> Instructions: Antibiotic Form, Urinary Tract Infection in Women (ED), Interstitial Cystitis (ED) <Jamila Sauceda PA-C - Last Filed: 02/28/25 16:47> Additional Instructions: you have a urinary tract infection causing cystitis which is inflammation/ infection of the urinary system and the bladder. We will treat this with oral antibiotics and pain control medications. Follow-up with your regular doctor. Return with any worsening concerns or new symptoms. <Jamila Sauceda PA-C - Last Filed: 02/28/25 16:47> Patient Language: Lao <Jamila Sauceda PA-C - Last Filed: 02/28/25 16:47> Prescriptions: New sulfamethoxazole-trimethoprim [Bactrim DS] 800-160 mg tablet 1 tablet PO Q12H Qty: 14 0RF phenazopyridine [Pyridium] 200 mg tablet 200 mg PO TID PRN (Reason: pain) Qty: 6 0RF No Action Vitamin 27 mg iron- 800 mcg tablet 1 tablet PO DAILY 30 Days Qty: 30 11RF docusate sodium 100 mg Capsule 100 mg PO BID PRN (Reason: Constipation) Qty: 60 0RF ibuprofen 600 mg Tablet 600 mg PO Q6H PRN (Reason: Cramping) Qty: 30 0RF <Jamila Sauceda PA-C - Last Filed: 02/28/25 16:47> Follow-up/Referrals: Gucci Muhammad MD [Primary Care Provider] - <Jamila Sauceda PA-C - Last Filed: 02/28/25 16:47> Time of Disposition: 16:42 <Jamila Sauceda PA-C - Last Filed: 02/28/25 16:47> 16:42 <Harman Yancey MD - Last Filed: 02/28/25 16:42>
[2025-02-28 14:00] LABS: Basophils Absolute Auto 0.1 K/mm3 (0.0-0.1); Basophils Percent Auto 0.3 % (0.2-1.2); Eosinophils Absolute Auto 0.2 K/mm3 (0-0.3); Eosinophils Percent Auto 1.4 % (0-4.4); Hematocrit 40.3 % (37.0-47.0); Hemoglobin 12.7 g/dL (12.0-15.0); Immature Granulocyte Absolute 0.07 K/mm3 (0.00-0.031); Immature Granulocyte Percent A 0.4 % (0-0.5); Lymphocytes Absolute Auto 2.09 K/mm3 (0.9-3.2); Lymphocytes Percent Auto 12.9 % (18.3-44.2); Mean Corpuscular HGB Conc 31.5 g/dl (32-36); Mean Corpuscular Hemoglobin 27.3 pg (26-34); Mean Corpuscular Volume 86.7 fl (80-100); Mean Platelet Volume 10.1 fl (7.4-10.4); Monocytes Absolute Auto 0.9 K/mm3 (0.1-0.6); Monocytes Percent Auto 5.3 % (2.6-8.5); Neutrophils Absolute Auto 12.9 K/mm3 (1.3-6.7); Neutrophils Percent Auto 79.7 % (45.5-73.1); Platelet Count Result 397 k/mm3 (150-375); Red Blood Count 4.65 M/mm3 (4.2-5.4); Red Cell Distribution Width 12.4 % (11.5-14.5); White Blood Count 16.2 K/mm3 (4.5-10.0)
--- OUTSIDE RECORDS SUMMARY | 2025-02-28 14:07 | XMS_ITS | Continuity of Care Document ---
Author Organization [facility] Address [address] [place] [address] Phone Care Team Providers Care Rn Long Term Care Name Role Phone Branden Moore MD Unavailable [...] MG - Active Procedures Procedure Date Office/outpatient visit,[facility] 2018 Fracture Care To Be Charged Distal Fibular Fx (lateral Malleolus) W/ o Manip Walking Boot, Pneumatic And/or Vacuum Wi th Or With Advance Directives Directive Yes / No Effective Date File Name No Information Encounters Encounter Description Practice Location Reason(s) For Visit Diagnoses Date Provider Providers Copied on Encounter Office/outpat ient visit,[facility], [facility], [address], [place], [id number], tel:[phone] [facility] foot (chief complaint) Closed nondisplaced transverse fracture of shaft of left fibula, initial encounter [address] Otero. [address], [place], [id number] , . tel:[phone] Referring Provider: Jasbir Espinosa, [address] [place], [address] . tel:[phone] [facility], [address] [place] [address], [id number], tel:[phone] [facility] No Information [address] Oscar Branden. [address], [place], [id number] , . tel:[phone] Referring Provider: Branden Stein, [address] [place] [address], [id number] . tel:[phone] Family History Family Member Type Diagnosis Age At Onset No Information Payers Payer name Insurance type Covered green party ID Authora madelin(s) [employer] 21 [id number] Social History Type Description Quantity Date Captured [...]
[2025-02-28 14:11] LABS: Alanine Aminotransferase 22 U/L (6-35); Albumin Level 4.6 g/dL (3.5-5.1); Alkaline Phosphatase 68 U/L (38-126); Anion Gap 11 mmol/L (4-12); Aspartate Amino Transferase 20 U/L (14-36); Bilirubin,Total 0.8 mg/dL (0.2-1.3); Blood Urea Nitrogen 13 mg/dL (7-17); Calcium 9.4 mg/dL (8.4-10.2); Carbon Dioxide 25 mmol/L (22-30); Chloride 104 mmol/L (98-107); Estimated CRCL calculation 122 ml/min; Estimated Glomerular Filt Rate > 60; Glucose 110 mg/dL (65-110); Lipase 57 U/L (23-300); Potassium 3.9 mmol/L (3.4-5.0); Sodium 140 mmol/L (137-145)
--- NOTE | 2025-02-28 14:40 | PC.NURSE ---
spoke with Sai in lab to add on qualitative urine to sample already sent down
[2025-02-28 14:50] LABS: Pregnancy On Board Control Positive; Urine Pregnancy Test Negative
[2025-02-28 14:51] LABS: Add Urine Microscopic? YES; Appearance Urine Turbid (Clear); Bacteria Urine Rare /hpf; Bilirubin Urine Negative (Negative); Blood Urine 3+ (Negative); Color Urine Dark Yellow (Yellow); Glucose Urine UA Negative (Negative); Ketones Urine Trace mg/dL (Negative); Leukocyte Esterase Ur 3+ LEU/UL (Negative); Mucus Urine Present /lpf; Need Manual Microscopic Reviewed; Nitrate Urine Negative (Negative); Protein Urine 3+ mg/dL (Negative); RBC Urine >100 /hpf (0-2); Specific Grav Ur 1.027 (1.001-1.035); Squamous Epithelial Cell Urine Few /hpf (Few); WBC Urine >100 /hpf (0-3); pH Urine 5.5 (5.0-9.0)
[2025-02-28] MEDS: SULFAMETHOXAZOLE/TRIMETHOPRIM 800/160 MG DS TABLET 1 TAB PO (16:49)
== END 2025-02-28 16:55 | disposition home or self-care (01) ==
PROVIDERS: Physician Assistant; Emergency Provider Student in an Organized Health Care Education/Training Program; PCP Family Medicine Adolescent Medicine
DX: N30.01 Acute cystitis with hematuria (principal); F17.210 Nicotine dependence, cigarettes, uncomplicated; F17.290 Nicotine dependence, other tobacco product, uncomplicated
CPT/HCPCS: 36415; 74176; 80053; 81001; 81025; 83690; 85025; 87086; 99284; A9270